=== PATIENT | male | born 1935 | race Caucasian/White ===

== ENCOUNTER 2016-07-02 13:07 | Outpatient (CLI) | payer MEDICARE, BC | END 2016-07-02 13:08 | disposition home or self-care (01) | DX: R91.8 Other nonspecific abnormal finding of lung field (principal) ==

== ENCOUNTER 2016-07-02 13:11 | Outpatient (CLI) | payer MEDICARE, BC | END 2016-07-02 13:12 | disposition home or self-care (01) | DX: R06.02 Shortness of breath (principal); R91.8 Other nonspecific abnormal finding of lung field; I51.7 Cardiomegaly ==

== ENCOUNTER 2017-12-09 11:23 | Emergency (ER) | payer MEDICARE, BC ==
--- NOTE | 2017-12-09 12:43 | ED Physician Documentation ---
PD HPI UPPER EXT INJURY - Stated complaint Stated Complaint: L ELBOW LAC - Chief complaint Chief Complaint: Ext Problem - History obtained from History obtained from: Patient - History of Present Illness Location: Left, Elbow (posterior elbow laceration. He was carrying an old toilet tank and lost balance, fell to left side and struck elbow. Denies injury to head/neck/back.) Type of injury: Fall. No: Blunt / blow, Penetrating / stab / GSW Timing - onset: Today Timing - details: Abrupt onset, Still present Worsened by: Moving, Palpating Associated symptoms: No: Weakness, Numbness, Swelling Similar symptoms before: Has not had sx before Recently seen: Not recently seen Review of Systems Musculoskeletal: denies: Neck pain, Back pain Neurologic: denies: Generalized weakness, Focal weakness, Numbness, Difficulty speaking, Headache, Head injury PD PAST MEDICAL HISTORY - Past Medical History Cardiovascular: Hypertension Respiratory: None GI: Colon polyps : Kidney stones Musculoskeletal: Osteoarthritis, Gout - Past Surgical History General: Colonoscopy Ortho: Knee replacement, Carpal Tunnel surgery - Present Medications Home Medications: Ambulatory Orders Medication Instructions Recorded Confirmed Allopurinol 100 mg PO 12/03/12 12/03/12 Aspirin 81 mg PO 12/03/12 12/03/12 Hydrochlorothiazide 50 mg PO 12/03/12 12/03/12 Losartan [Cozaar] 50 mg PO DAILY 12/03/12 12/03/12 - Allergies Allergies/Adverse Reactions: Allergies Allergy/AdvReac Type Severity Reaction Status Date / Time No Known Drug Allergies Allergy Verified 12/09/17 11:40 - Social History Does the pt smoke?: No Smoking Status: Never smoker Does the pt drink ETOH?: Yes Does the pt have substance abuse?: No - Immunizations Immunizations are current?: Yes PD ED PE NORMAL - Vitals Vital signs reviewed: Yes - General General: Alert and oriented X 3, No acute distress, Well developed/nourished - HEENT HEENT: Atraumatic, Moist mucous membranes - Neck Neck: Supple, no meningeal sign, No bony TTP, No adenopathy - Cardiac Cardiac: RRR, No murmur - Respiratory Respiratory: Clear bilaterally - Abdomen Abdomen: Soft, Non tender - Back Back: No spinal TTP - Derm Derm: Normal color, Warm and dry - Extremities Extremities: No deformity, Normal ROM s pain, Other (left posterior elbow laceration through skin but not into bursal nor joint. Edges open with elbow flexion. ) - Neuro Neuro: Alert and oriented X 3, No motor deficit, Normal speech Eye Opening: Spontaneous Motor: Obeys Commands Verbal: Oriented GCS Score: 15 - Psych Psych: Normal mood, Normal affect Results - Vitals Vitals: Oxygen O2 Source Room air Procedures - Laceration (location) left posterior elbow Length in cm: 3 Wound type: Curved Neurovascular status: Sensory intact, Motor intact, Vascular intact Tendon involvement: No: Tendon Injury Anesthesia: Lidocaine 1% with epi, Marcaine 0.5% with epi Wound Preparation: Irrigated copiously NS Skin layer closure: Nylon, Running, Size #-0 - enter number (4), Sutures - enter # (14) Other: Patient tolerated well, No complications, Neurovascular intact, Dressing applied, Tetanus UTD Complexity: Simple PD MEDICAL DECISION MAKING - ED course Complexity details: considered differential, d/w patient - Sepsis Event Vital Signs: Oxygen O2 Source Room air Departure - Departure Disposition: 01 Home, Self Care Clinical Impression: Fall from slip, trip, or stumble Qualifiers: Encounter type: initial encounter Qualified Code(s): W01.0XXA - Fall on same level from slipping, tripping and stumbling without subsequent striking against object, initial encounter Elbow laceration Qualifiers: Encounter type: initial encounter Laterality: left Qualified Code(s): S51.012A - Laceration without foreign body of left elbow, initial encounter Condition: Stable Record reviewed to determine appropriate education?: Yes Instructions: ED Laceration Ext Sutr Stap Tape Follow-Up: Kamron Fabian DO [Primary Care Provider] - Comments: It is okay to wash and shower. Clean off the wound twice a day with soap and water, or peroxide and water. Apply some antibiotic ointment to it to keep it moist. Also to watch for signs of infection such as purulence, redness or increasing pain. Return to your primary care or the ER at the specified time for suture removal. Suture removal 12-14 days. Tylenol or ibuprofen if needed for pains. Regular use of the arm is okay. Discharge Date/Time: 12/09/17 13:39
[2017-12-09] MEDS ORDERED: BACITRACIN OINT TOP ONE (13:24)
[2017-12-09 13:39] VITALS: BP 176/94
== END 2017-12-09 13:39 | disposition home or self-care (01) ==
LOC: ED 11:23
DX: S51.012A Laceration without foreign body of left elbow, initial encounter (principal); W18.30XA Fall on same level, unspecified, initial encounter; W22.8XXA Striking against or struck by other objects, initial encounter; I10 Essential (primary) hypertension; Z96.659 Presence of unspecified artificial knee joint; Z79.82 Long term (current) use of aspirin
CPT/HCPCS: 12002; 99282; 99283; A9270

== ENCOUNTER 2018-01-13 17:13 | Outpatient (CLI) | payer MEDICARE, BC | END 2018-01-13 17:14 | disposition critical access hospital (66) | LOC: EMS 17:13 | PROVIDERS: ATTEND Surgery | DX: R10.9 Unspecified abdominal pain (principal); R61 Generalized hyperhidrosis; R23.1 Pallor | CPT/HCPCS: A0425; A0427 ==

== ENCOUNTER 2018-01-13 17:43 | Inpatient (IN) | payer MEDICARE, BC ==
[2018-01-13] MEDS ORDERED: MORPHINE 2 MG/ML CARPUJECT IVP STA (17:56)
[2018-01-13] MEDS ORDERED: ONDANSETRON 4 MG/2 ML VIAL IVP STA (17:56)
--- NOTE | 2018-01-13 17:58 | ED Physician Documentation ---
History of Present Illness - Stated complaint Stated Complaint: BACK PX - Chief complaint Chief Complaint: General - History obtained from History obtained from: Patient - History of Present Illness Timing: Today (82-year-old gentleman with history of hypertension, BPH who commonly has low back pain had a higher back pain near the shoulder blades today and was sitting in his chair doing some light exercises to try to work it out when he developed excruciating diffuse abdominal pain that lasted for about 30 minutes and is now gone. There is no associated shortness of breath or chest pain. He is never had this before. No history of abdominal surgeries.) Review of Systems Ten Systems: 10 systems reviewed and negative Constitutional: denies: Fever, Chills Cardiac: denies: Chest pain / pressure, Palpitations Respiratory: denies: Dyspnea, Cough PD PAST MEDICAL HISTORY - Past Medical History Cardiovascular: Hypertension Respiratory: None GI: Colon polyps : Kidney stones Musculoskeletal: Osteoarthritis, Gout - Past Surgical History General: Colonoscopy Ortho: Knee replacement, Carpal Tunnel surgery - Present Medications Home Medications: Ambulatory Orders Medication Instructions Recorded Confirmed Allopurinol 100 mg PO 12/03/12 12/03/12 Aspirin 81 mg PO 12/03/12 12/03/12 Hydrochlorothiazide 50 mg PO 12/03/12 12/03/12 Losartan [Cozaar] 100 mg PO DAILY 12/03/12 12/03/12 Finasteride 5 mg PO 01/13/18 Tamsulosin HCl [Flomax] 0.4 mg 01/13/18 - Allergies Allergies/Adverse Reactions: Allergies Allergy/AdvReac Type Severity Reaction Status Date / Time No Known Drug Allergies Allergy Verified 01/13/18 18:08 - Social History Does the pt smoke?: No Smoking Status: Never smoker Does the pt drink ETOH?: Yes Does the pt have substance abuse?: No - Immunizations Immunizations are current?: Yes PD ED PE NORMAL - Vitals Vital signs reviewed: Yes - General General: Alert and oriented X 3 (He is sweaty) - HEENT HEENT: PERRL, EOMI - Neck Neck: Supple, no meningeal sign, No bony TTP - Cardiac Cardiac: RRR, No murmur - Respiratory Respiratory: No respiratory distress, Clear bilaterally - Abdomen Abdomen: Soft (Large ventral hernia), Other (Mild diffuse tenderness without surgical signs) - Derm Derm: Normal color, Other (sweaty) - Extremities Extremities: No deformity, No tenderness to palpate, No edema, No calf tenderness / cord - Neuro Neuro: Alert and oriented X 3, Normal speech - Psych Psych: Normal mood, Normal affect Results - Vitals Vitals: Vital Signs - 24 hr 01/13/18 01/13/18 01/13/18 17:44 18:00 18:11 Temperature 35.5 C L Heart Rate 83 80 Respiratory 18 16 Rate Blood Pressure 123/51 L 113/70 123/56 L O2 Saturation 95 94 01/13/18 20:27 Temperature Heart Rate 86 Respiratory 17 Rate Blood Pressure 156/94 H O2 Saturation 99 Oxygen O2 Source Room air - EKG (time done) 1753 Rate: Rate (enter#) (77) Rhythm: NSR [place]: Normal Intervals: Prolonged CT Ischemia: Q waves (inferior/ small lat). No: ST elevation c/w ischemia Computer interpretation: Agree with computer - Labs Labs: Laboratory Tests 01/13/18 01/13/18 01/13/18 18:00 18:00 18:00 WBC 10.1 RBC 4.77 Hgb 14.8 Hct 43.9 MCV 91.9 MCH 31.0 MCHC 33.7 RDW 14.5 Plt Count 296 MPV 7.0 L Neut # (Auto) 7.9 H Lymph # (Auto) 1.[address] [place] # (Auto) 0.7 Eos # (Auto) 0.1 Baso # (Auto) 0.1 Absolute Nucleated RBC 0.00 Nucleated RBC % 0.0 PT 11.9 INR 1.1 Sodium 132 L Potassium 3.4 L Chloride 92 L Carbon Dioxide 30 Anion Gap 10.0 BUN 15 Creatinine 1.0 Estimated GFR (MDRD) 71 L Glucose 147 H Calcium 9.9 Total Bilirubin 1.4 H AST 88 H ALT 37 Alkaline Phosphatase 119 Troponin I Total Protein 6.2 L Albumin 3.8 Globulin 2.4 Albumin/Globulin Ratio 1.6 Lipase 1595 H Blood Type Antibody Screen 01/13/18 01/13/18 18:00 18:00 WBC RBC Hgb Hct MCV MCH MCHC RDW Plt Count MPV Neut # (Auto) Lymph # (Auto) [place] # (Auto) Eos # (Auto) Baso # (Auto) Absolute Nucleated RBC Nucleated RBC % PT INR Sodium Potassium Chloride Carbon Dioxide Anion Gap BUN Creatinine Estimated GFR (MDRD) Glucose Calcium Total Bilirubin AST ALT Alkaline Phosphatase Troponin I < 0.04 Total Protein Albumin Globulin Albumin/Globulin Ratio Lipase Blood Type O POSITIVE Antibody Screen NEGATIVE - Rads (name of study) CTA Chest/abd Radiology: EMP read contemporaneously (Atherosclerosis but without vascular emergency, cholelithiasis and enlarged prostate gland.) Abd Sono Radiology: EMP read contemporaneously (Echogenic material within the gallbladder without evidence of Cholecystitis or bile duct dilatation.) PD MEDICAL DECISION MAKING - ED course ED course: 82-year-old gentleman with acute chest and back pain looking ill. Initial thought was for dissection and sent for CT which showed no acute vascular issue but does have cholelithiasis. After seeing the labs I suspect he has gallstone pancreatitis and an ultrasound was done showing material within the gallbladder but no evidence of cholecystitis or bile duct dilatation. He was pain-free at that point and the on-call surgeon, Dr. Myers was called and will consult and I spoke with Dr. Antonio for admission at 9 PM. Departure - Departure Disposition: 66 [facility] DC/Xfer Clinical Impression: Pancreatitis Qualifiers: Chronicity: acute Pancreatitis type: unspecified pancreatitis type Acute pancreatitis complication: no infection or necrosis Qualified Code(s): K85.90 - Acute pancreatitis without necrosis or infection, unspecified Condition: Serious Record reviewed to determine appropriate education?: Yes
[2018-01-13 18:15] LABS: BASOPHILS # (AUTO) 0.1 10^3/uL (0.0-0.1); BASOPHILS % (AUTO) 0.7 %; EOSINOPHILS # (AUTO) 0.1 10^3/uL (0.0-0.7); HGB - HEMOGLOBIN 14.8 g/dL (14.0-18.0); LYMPHOCYTES # (AUTO) 1.4 10^3/uL (1.5-3.5); LYMPHOCYTES % (AUTO) 13.8 %; MEAN CORPUSCULAR HGB CONC 33.7 g/dL (32.0-36.0); MEAN CORPUSCULAR VOLUME 91.9 fL (80.0-94.0); MONOCYTES # (AUTO) 0.7 10^3/uL (0.0-1.0); MONOCYTES % (AUTO) 6.6 %; NEUTROPHILS # (AUTO) 7.9 10^3/uL (1.5-6.6); NEUTROPHILS % (AUTO) 77.9 %; PLT - PLATELET COUNT 296 10^3/uL (130-450); RED BLOOD COUNT 4.77 10^6/uL (4.70-6.10); RED CELL DISTRIBUTION WIDTH 14.5 % (12.0-15.0); WHITE BLOOD COUNT 10.1 x10^3/uL (4.8-10.8)
[2018-01-13] MEDS ORDERED: IOPAMIDOL-300 100 ML VIAL ONE (18:18)
[2018-01-13 18:19] LABS: INR 1.1 (0.8-1.2); PT - PROTHROMBIN TIME 11.9 secs (9.9-12.6)
[2018-01-13 18:46] LABS: ALBUMIN 3.8 g/dL (3.2-5.5); ALBUMIN/GLOBULIN RATIO 1.6 (1.0-2.2); BILIRUBIN,TOTAL 1.4 mg/dL (0.2-1.0); CALCIUM 9.9 mg/dL (8.5-10.3); TOTAL PROTEIN 6.2 g/dL (6.7-8.2)
[2018-01-13] MEDS ORDERED: IOPAMIDOL-300 100 ML VIAL IVP ONE (19:04)
--- NOTE | 2018-01-13 19:50 | CT Report ---
Reason: BACK/ABD PAIN Procedure Date: 01/13/2018 Accession Number: [id number] / [id number] Procedure: CT - Abdomen/Pelvis Angio CPT Code: FULL RESULT: IMPRESSION: 1. No aortic dissection. No central pulmonary emboli. Moderate to severe atherosclerosis. 2. Cholelithiasis. 3. Enlarged prostate gland. RADIA
--- NOTE | 2018-01-13 19:50 | CT Report ---
Reason: back/abd pain Procedure Date: 01/13/2018 Accession Number: [id number] / [id number] Procedure: CT - Chest Angio (AORTA) CPT Code: FULL RESULT: EXAM: CT ANGIOGRAM CHEST, ABDOMEN AND PELVIS EXAM DATE: 01/13/2018 07:07 PM. CLINICAL HISTORY: Back/abd pain. COMPARISONS: 07/02/2016, 08/14/2012. TECHNIQUE: Routine axial helical CT angiographic imaging was performed through the chest, abdomen, and pelvis. IV Contrast: ISOVUE 300 100mL. Reconstructions: Coronal, sagittal, and 3D MIP reconstructions of the aorta. In accordance with CT protocol optimization, one or more of the following dose reduction techniques were utilized for this exam: automated exposure control, adjustment of mA and/or KV based on patient size, or use of iterative reconstructive technique. FINDINGS: The examination is mildly degraded by motion artifact. Vascular Structures: No aortic dissection. The ascending aorta measures up to 4.1 cm at the level of the right pulmonary artery. Moderate atherosclerotic of the arch and descending aorta. Moderate to marked atherosclerosis of the abdominal aorta and its branches. No abdominal aortic aneurysm. No major vessel occlusion. 3 vessel coronary calcifications. No pulmonary emboli are identified through the proximal segmental level. Lungs/Pleura: No consolidation, or pleural effusion or pneumothorax. Mild peripheral reticulation. Mild dependent atelectasis or scar. No mass. Mediastinum: No cardiac enlargement or lymphadenopathy. Abdominal Organs: There are a few sub-centimeter hypoattenuating lesions in the liver and a few calcified granulomas in the liver and spleen. There is fatty atrophy of the pancreas. There are exophytic right renal cysts. No hydronephrosis. There is cholelithiasis. No gallbladder wall thickening. Peritoneal Cavity: No bowel obstruction. Small hiatal hernia. No free fluid, free air, or acute inflammatory process. Pelvic Organs: Mild urinary bladder wall thickening. Enlarged prostate gland measures 5.2 x 5.3 cm. Bones: Moderate to severe changes in the spine with prominent osteophyte formation, greatest in the lumbar spine. Mild lumbar scoliosis. There are several old rib fractures. Other: None. IMPRESSION: 1. No aortic dissection. No central pulmonary emboli. Moderate to severe atherosclerosis. 2. Cholelithiasis. 3. Enlarged prostate gland. RADIA
--- NOTE | 2018-01-13 20:49 | Ultrasound Report ---
Reason: abd/back pain, high lipase Procedure Date: 01/13/2018 Accession Number: [id number] / [id number] Procedure: US - Abdomen Limited CPT Code: FULL RESULT: EXAM: ABDOMEN ULTRASOUND LIMITED, RUQ EXAM DATE: 01/13/2018 07:45 PM. CLINICAL HISTORY: Abd/back pain, high lipase. COMPARISON: ABDOMEN/PELVIS ANGIO 01/13/2018 6:58 PM. TECHNIQUE: Real-time scanning was performed with static images obtained. FINDINGS: Liver: Submitted images of liver demonstrate no focal lesions. Main portal vein flow: Hepatopetal. Gallbladder: There is echogenic material within the gallbladder which probably represents sludge. There is no evidence of gallbladder wall thickening. Negative sonographic Jones sign. Biliary System: CBD measures 6 mm. No intrahepatic or extrahepatic ductal dilatation. Other: Right kidney demonstrates no hydronephrosis. IMPRESSION: 1. There is echogenic material within the gallbladder which probably represents sludge. No evidence of shadowing stones or wall thickening. Negative sonographic Jones sign. 2. There is no intra-or extrahepatic bile duct dilatation. RADIA
[2018-01-13] MEDS ORDERED: PROCHLORPERAZINE 10 MG/2 ML VIAL IVP PRN (21:04)
[2018-01-13] MEDS ORDERED: PROMETHAZINE 25 MG/1 ML VIAL IM PRN (21:04)
[2018-01-13] MEDS ORDERED: oxyCODONE 5 MG TABLET PO PRN (21:04)
[2018-01-13] MEDS ORDERED: ONDANSETRON 4 MG/2 ML VIAL IVP PRN (21:04)
--- NOTE | 2018-01-13 21:14 | HISTORY & PHYSICAL EXAMINATION ---
Chief Complaint - Chief Complaint Chief Complaint: Abdominal Pain History of Present Illness - Admitted From Admitted From:: Emergency Department - History Obtained From Records Reviewed: Yes History obtained from: Patient Exam Limitations: None - History of Present Illness HPI Comment/Other: Patient is an 82-year-old gentleman with a past medical history significant for hypertension, BPH, gout and osteoarthritis who presented to the emergency department with a chief complaint of abdominal pain. Patient states that he was in his normal state of health until around 4:30 PM when he began having severe abdominal pain located in the epigastric region radiating to the back. Patient states that he broke out in a cold sweat and states that his pain was a 10 out of 10 and sharp. He states that he had associated nausea and the pain remained constant until he received pain medication in the emergency department. He st ates that he had a similar pain in 1988 when he had a kidney stone but states that the location of that pain was different. He states that his last meal was at lunch time and that the pain was not related to any recent p.o. intake. He states when the pain started he was sitting on a chair watching TV and talking to his son. He states that his pain was so severe that his son called 911. The patient does admit to drinking 2 drinks a day one with dinner and 1 before bed both drinks of whiskey. The patient otherwise denies any fevers or chills. He denies any vomiting or diarrhea. He denies any chest pain, shortness of air, orthopnea, PND, increased lower extremity swelling. He denies any urinary urgency frequency or dysuria. He denies any neck stiffness or focal neurologic deficits. Patient denies any headaches, blurred vision, runny nose, sore throat, nasal congestion, difficulty swallowing, joint swelling, joint pain, muscle aches, recent unintentional weight loss, changes in his appetite, polyuria, polydipsia, skin changes, skin rash, night sweats. On presentation to the emergency department the patient was afebrile and vital signs were within normal limits. The patient received 1 dose of Zofran and 1 dose of morphine in the emergency department with which his pain and nausea resolved. The patient underwent routine lab work which did show a mild hyponatremia and hypokalemia along with a mildly elevated glucose. The patient was also found to have a mildly elevated bilirubin of 1.4 and AST of 88. The patient's lipase was significantly elevated at 1595. The patient's UA was negative. The patient did undergo imaging with an CT angiogram of the abdomen and pelvis which showed no aortic dissection. No central pulmonary emboli. Moderate to severe atherosclerosis. Cholelithiasis. And an enlarged prostate gland. The patient also underwent an abdominal ultrasound which revealed echogenic material within the gallbladder which probably represents sludge. T here was no evidence of shadowing stones or wall thickening. The sonographic Jones sign was negative. There was no intra-or extrahepatic bile duct dilatation. The emergency room physician did speak with the surgeon pedodontist as the patient was thought to likely have gallstone pancreatitis. The surgeon asked that the hospitalist team admit the patient and that they would see him in consultation. The patient was admitted to the medical pena for acute pancreatitis. History - Past Medical History Cardiovascular: reports: Hypertension Respiratory: reports: None GI: reports: Colon polyps : reports: Benign prostate hypertrophy, Kidney stones Musculoskeletal: reports: Osteoarthritis, Gout MRSA Hx?: No - Past Surgical History General: reports: Colonoscopy Ortho: reports: Knee replacement, Carpal Tunnel surgery - Family & Social History Family History: Mother: , Cancer, Father: , CAD Living arrangement: At home Living Situation: Alone Social History Notes: The patient states he grew up in [place] but lived most of his life in the [facility] before moving to [place] 21 years ago. He states that him and his moved to [place] as there son was living there after he retired from the [employer] and they love the area. He states that his in 2011 and he has been living alone since. His son does live nearby in [place]. The patient is very independent and still is able to per form all his activities of daily living. He states that he does use a walker when he goes shopping but otherwise is able to ambulate around the house without much difficulties. The patient states that he was a former smoker and smoked 1- 2 packs/day for just over 20 years and quit in 1977. He states that he does drink 2 glasses of whiskey every night. He denies any illicit drug use. - POLST Patient has POLST: No POLST Status: Full Code Meds/Allgy - Home Medications Home Medications: Ambulatory Orders Medication Instructions Recorded Confirmed Allopurinol 100 mg PO 12/03/12 12/03/12 Aspirin 81 mg PO 12/03/12 12/03/12 Hydrochlorothiazide 50 mg PO 12/03/12 12/03/12 Losartan [Cozaar] 100 mg PO DAILY 12/03/12 12/03/12 Finasteride 5 mg PO 01/13/18 Tamsulosin HCl [Flomax] 0.4 mg 01/13/18 - Allergies Allergies/Adverse Reactions: Allergies Allergy/AdvReac Type Severity Reaction Status Date / Time No Known Drug Allergies Allergy Verified 01/13/18 18:08 Review of Systems - Other Findings Other Findings: A comprehensive review of systems was performed the pertinent positives and negatives are stated above in the HPI and the remainder of the review of systems is negative. Prior Level of Functionality: Patient is still fully independent and does use a walker when he goes shopping but otherwise does not require an assistance device to ambulate around the house. He is still able to perform all his activities of daily living independently. Exam - Vital Signs Reviewed Vital Signs: Yes Vital Signs: Vital Signs x48h Temp Pulse Resp BP Pulse Ox 01/13/18 21:06 88 21 180/95 H 97 01/13/18 20:27 86 17 156/94 H 99 01/13/18 18:11 80 16 123/56 L 94 01/13/18 18:00 113/70 01/13/18 17:44 35.5 C L 83 18 123/51 L 95 - Physical Exam General Appearance: positive: No acute distress, Alert Eyes Bilateral: positive: Normal inspection, PERRL, EOMI, No lid inflammation, Conjunctivae nml, No scleral icterus ENT: positive: ENT inspection nml, Pharynx nml, Dry mucous membranes. negative: Purulent nasal drainage, Pharyngeal erythema, Oral lesions Neck: positive: Nml inspection, Thyroid nml, No JVD, Trachea midline. negative: Thyromegaly, Lymphadenopathy (R), Lymphadenopathy (L), Stiff neck, Carotid bruit, Tracheal deviation Respiratory: positive: Chest non-tender, No respiratory distress, Breath sounds nml. negative: Wheezes, Rales, Rhonchi Cardiovascular: positive: Regular rate & rhythm, No murmur, No gallop Peripheral Pulses: positive: 2+ Abdomen: positive: No organomegaly, Nml bowel sounds, No distention, Tenderness (Mild epigastric tenderness, soft abdomen with no peritoneal signs.). negative: Guarding, Rebound, Hepatomegaly Back: positive: Nml inspection. negative: CVA tenderness (R), CVA tenderness (L) Skin: positive: Color nml, No rash, Warm, Dry. negative: Cyanosis, Diaphoresis, Pallor, Skin rash Extremities: positive: Non-tender, Full ROM, Nml appearance, No pedal edema Neurologic/Psychiatric: positive: Oriented x3, CN's nml (2-12), Motor nml, Sensation nml, Mood/affect nml Conclusion/Plan - Problem List (1) Acute pancreatitis Conclusion/Plan: The patient presented with sudden onset abdominal pain with radiation to the back. On presentation the patient was found to have a lipase of 1595. Patient's CT and abdominal ultrasound showed gallbladder stones and sludge. The patient did not have a dilated common bile duct and LFTs were only mildly elevated. The patient does admit to drinking 2 glasses of whiskey nightly but has not had any change in his alcohol intake. The patient likely has gallstone pancreatitis. Plan: Bowel rest n.p.o. IV fluids IV morphine for pain control IV Zofran and Compazine for nausea control Supportive care Surgery consult for possible cholecystectomy inpatient versus outpatient Monitor lipase and amylase daily Check lipid profile Qualifiers: Pancreatitis type: biliary Acute pancreatitis complication: no infection or necrosis Qualified Code(s): K85.10 - Biliary acute pancreatitis without necrosis or infection (2) Cholelithiasis Conclusion/Plan: Patient presented with acute pancreatitis and appears to have gallstones on CT and and sludge on ultrasound. Patient did not have common bile duct dilatation. It appears that the most likely etiology of the patient's pancreatitis is gallstones. Given that this is a likely gallstone pancreatitis once patient's pancreatitis improves patient will likely need a cholecystectomy. We will c onsult surgery and keep the patient n.p.o. Qualifiers: Cholelithiasis location: gallbladder Cholecystitis presence: without cholecystitis Biliary obstruction: without biliary obstruction Qualified Code(s): K80.20 - Calculus of gallbladder without cholecystitis without obstruction (3) Hyponatremia Conclusion/Plan: Patient presents with a mild hyponatremia with a sodium of 132. Patient appears to have hypovolemic hyponatremia likely secondary to dehydration and nausea due to ongoing pancreatitis. Plan: IV fluids Monitor sodium (4) Hypokalemia Conclusion/Plan: The patient has a mild hypokalemia on presentation with a potassium of 3.4. Likely patient has hypokalemia secondary to ongoing pancreatitis and nausea. Patient will be given potassium replacement and potassium will be monitored. (5) Hypertension Conclusion/Plan: The patient is a history of hypertension and uses hydrochlorothiazide and losartan at home. Patient is currently n.p.o. and we will hold his antihypertensives for now as his blood pressure is within normal limits. If the patient's blood pressure does become significantly elevated we will place him on IV antihypertensives until he is able to start a diet at which point we can restart his home antihypertensives. Qualifiers: Hypertension type: essential hypertension Qualified Code(s): I10 - Essential (primary) hypertension (6) BPH (benign prostatic hyperplasia) Conclusion/Plan: Patient has a history of BPH and takes Flomax and finasteride at home. These medications will be continued once the patient is able to start a diet. - Lab Results Lab results reviewed: Yes Fish Bones: 01/13/18 18:00 01/13/18 18:00 Other Lab Results: Laboratory Results WBC 10.1 x10^3/uL (4.8-10.8) 01/13/18 18:00 RBC 4.77 10^6/uL (4.70-6.10) 01/13/18 18:00 Hgb 14.8 g/dL (14.0-18.0) 01/13/18 18:00 Hct 43.9 % (42.0-52.0) 01/13/18 18:00 MCV 91.9 fL (80.0-94.0) 01/13/18 18:00 MCH 31.0 pg (27.0-31.0) 01/13/18 18:00 MCHC 33.7 g/dL (32.0-36.0) 01/13/18 18:00 RDW 14.5 % (12.0-15.0) 01/13/18 18:00 Plt Count 296 10^3/uL (130-450) 01/13/18 18:00 MPV 7.0 fL (7.4-11.4) L 01/13/18 18:00 Neut # (Auto) 7.9 10^3/uL (1.5-6.6) H 01/13/18 18:00 Lymph # (Auto) 1.4 10^3/uL (1.5-3.5) L 01/13/18 18:00 [place] # (Auto) 0.7 10^3/uL (0.0-1.0) 01/13/18 18:00 Eos # (Auto) 0.1 10^3/uL (0.0-0.7) 01/13/18 18:00 Baso # (Auto) 0.1 10^3/uL (0.0-0.1) 01/13/18 18:00 Absolute Nucleated RBC 0.00 x10^3/uL 01/13/18 18:00 Nucleated RBC % 0.0 /100WBC 01/13/18 18:00 PT 11.9 secs (9.9-12.6) 01/13/18 18:00 INR 1.1 (0.8-1.2) 01/13/18 18:00 Sodium 132 mmol/L (135-145) L 01/13/18 18:00 Potassium 3.4 mmol/L (3.5-5.0) L 01/13/18 18:00 Chloride 92 mmol/L (101-111) L 01/13/18 18:00 Carbon Dioxide 30 mmol/L (21-32) 01/13/18 18:00 Anion Gap 10.0 (6-13) 01/13/18 18:00 BUN 15 mg/dL (6-20) 01/13/18 18:00 Creatinine 1.0 mg/dL (0.6-1.2) 01/13/18 18:00 Estimated GFR (MDRD) 71 (>89) L 01/13/18 18:00 Glucose 147 mg/dL (70-100) H 01/13/18 18:00 Calcium 9.9 mg/dL (8.5-10.3) 01/13/18 18:00 Total Bilirubin 1.4 mg/dL (0.2-1.0) H 01/13/18 18:00 AST 88 IU/L (10-42) H 01/13/18 18:00 ALT 37 IU/L (10-60) 01/13/18 18:00 Alkaline Phosphatase 119 IU/L (42-121) 01/13/18 18:00 Troponin I < 0.04 ng/mL (<0.49) 01/13/18 18:00 Total Protein 6.2 g/dL (6.7-8.2) L 01/13/18 18:00 Albumin 3.8 g/dL (3.2-5.5) 01/13/18 18:00 Globulin 2.4 g/dL (2.1-4.2) 01/13/18 18:00 Albumin/Globulin Ratio 1.6 (1.0-2.2) 01/13/18 18: Lipase 1595 U/L (22-51) H 01/13/18 18:00 Blood Type O POSITIVE 01/13/18 18:00 Antibody Screen NEGATIVE 01/13/18 18:00 - Diagnostic Imaging Results Diagnostic Imaging Results: positive: Final report reviewed Diagnostic Imaging Results Comments: Abdominal ultrasound Impression: 1. There is echogenic material within the gallbladder which probably represents sludge. No evidence of shadowing stones or wall thickening. Negative sonographic Jones sign. 2. There is no intra-or extrahepatic bile duct dilatation Abdomen/pelvis CT angiogram Impression: 1. No aortic dissection. No central pulmonary emboli. Moderate to severe atherosclerosis. 2. Cholelithiasis 3. Enlarged prostate gland. Core Measures - Anticipated LOS I expect patient to be DC'd or transferred within 96 hours.: Yes - DVT/VTE - Prophylaxis VTE/DVT Prophylaxis med ordered at admit?: Yes
[2018-01-13] MEDS: DEXTROSE 5%-0.9% NACL 1,000 ML IV SCH (22:00)
[2018-01-14] MEDS: SODIUM CHLORIDE FLUSH 0.9% 10 ML SYRINGE IVP SCH ×4 (00:31→23:52)
[2018-01-14 00:32] LABS: BILIRUBIN,URINE NEGATIVE (NEGATIVE); CLARITY,URINE CLEAR (CLEAR); GLUCOSE, URINE (UA) NEGATIVE (NEGATIVE); KETONES,URINE (UA) NEGATIVE (NEGATIVE); LEUKOCYTE ESTERASE, URINE NEGATIVE (NEGATIVE); NITRITE,URINE NEGATIVE (NEGATIVE); OCCULT BLOOD,URINE NEGATIVE (NEGATIVE); PROTEIN,URINE NEGATIVE (NEGATIVE); UROBILINOGEN,URINE 0.2 (NORMAL) E.U./dL (NORMAL)
[2018-01-14] MEDS: POTASSIUM CHLOR 10 MEQ/100 ML 10 MEQ/100 ML BAG IV SCH ×2 (03:36→04:48)
[2018-01-14] MEDS: SODIUM CHLORIDE FLUSH 0.9% 10 ML SYRINGE IVP PRN (03:43)
[2018-01-14 05:19] LABS: BASOPHILS % (AUTO) 0.4 %; EOSINOPHILS # (AUTO) 0.1 10^3/uL (0.0-0.7); EOSINOPHILS % (AUTO) 0.6 %; HGB - HEMOGLOBIN 14.5 g/dL (14.0-18.0); LYMPHOCYTES # (AUTO) 0.7 10^3/uL (1.5-3.5); LYMPHOCYTES % (AUTO) 8.8 %; MEAN CORPUSCULAR HEMOGLOBIN 31.3 pg (27.0-31.0); MEAN CORPUSCULAR HGB CONC 34.3 g/dL (32.0-36.0); MEAN CORPUSCULAR VOLUME 91.3 fL (80.0-94.0); MONOCYTES # (AUTO) 0.6 10^3/uL (0.0-1.0); MONOCYTES % (AUTO) 7.2 %; PLT - PLATELET COUNT 229 10^3/uL (130-450); RED BLOOD COUNT 4.62 10^6/uL (4.70-6.10); RED CELL DISTRIBUTION WIDTH 14.6 % (12.0-15.0); WHITE BLOOD COUNT 8.4 x10^3/uL (4.8-10.8)
[2018-01-14 05:22] LABS: PT - PROTHROMBIN TIME 11.5 secs (9.9-12.6)
[2018-01-14 05:35] LABS: ALBUMIN 3.5 g/dL (3.2-5.5); ALBUMIN/GLOBULIN RATIO 1.3 (1.0-2.2); ALKALINE PHOSPHATASE 184 IU/L (42-121); ALT ALANINE AMINOTRANSFERASE 169 IU/L (10-60); AMYLASE 190 U/L (28-100); AST ASPARTATE AMINOTRANSFERASE 253 IU/L (10-42); BILIRUBIN,TOTAL 1.3 mg/dL (0.2-1.0); BUN - BLOOD UREA NITROGEN 15 mg/dL (6-20); CALCIUM 8.9 mg/dL (8.5-10.3); CARBON DIOXIDE - CO2 28 mmol/L (21-32); CHLORIDE 93 mmol/L (101-111); CHOL/HDL RATIO 2.2 (<5.0); CHOLESTEROL 154 mg/dL; CREATININE 0.8 mg/dL (0.6-1.2); GFR - MDRD 92 (>89); GLUCOSE 114 mg/dL (70-100); HDL CHOLESTEROL 70 mg/dL; LDL CHOLESTEROL,CALCULATED 68 mg/dL; LIPASE 178 U/L (22-51); MAGNESIUM 1.1 mg/dL (1.7-2.8); PHOSPHORUS 3.5 mg/dL (2.5-4.6); SODIUM 132 mmol/L (135-145); TOTAL PROTEIN 6.1 g/dL (6.7-8.2); VLDL CHOLESTEROL 16 mg/dL
[2018-01-14] MEDS ORDERED: MAGNESIUM SULFATE 2 GRAM 2 GM/50 ML BAG IV ONE (06:56)
[2018-01-14] MEDS: DEXTROSE 5%-0.9% NACL 1,000 ML IV SCH ×2 (09:41→22:18)
[2018-01-14] MEDS: POLYETHYLENE GLYCOL 3350 17 GM PACKET PO SCH (09:42)
[2018-01-14] MEDS: FAMOTIDINE 20 MG/50 ML 50 ML IV SCH ×2 (09:42→20:17)
[2018-01-14] MEDS: ASPIRIN CHEW 81 MG TABLET PO SCH (09:42)
[2018-01-14] MEDS: ENOXAPARIN 40 MG/0.4 ML SYRINGE SUBQ SCH (09:43)
--- NOTE | 2018-01-14 10:48 | PROVIDER PROGRESS NOTE ---
Subjective - Prog Note Date Prog Note Date: 01/14/18 Prog Note Time: 10:55 - Subjective Pt reports feeling: Improved Subjective: He says that his pain is almost completely gone. The only time he feels the epigastric discomfort is when I press on his belly. Otherwise, at rest, there is nothing there. No nausea, fever, chills. No change in the color of his stools. Current Medications - Current Medications Current Medications: Active Medications Acetaminophen (Tylenol) 650 mg PO Q4HR PRN PRN Reason: Pain 1 to 4 Aspirin ([facility] Aspirin) 81 mg PO DAILY [facility] Last Admin: 01/14/18 09:42 Dose: Not Given Enoxaparin Sodium (Lovenox) 40 mg SUBQ DAILY [facility] Last Admin: 01/14/18 09:43 Dose: Not Given Dextrose/Sodium Chloride (D5ns) 1,000 mls @ 100 mls/hr IV .Q10H [facility] Last Admin: 01/14/18 09:41 Dose: 100 mls/hr Famotidine (Pepcid 20 Mg/50 Ml) 50 mls @ 100 mls/hr IV BID [facility] Last Infusion: 01/14/18 10:22 Dose: Infused Morphine Sulfate (Morphine (Carpuject)) 2 mg IVP Q2HR PRN PRN Reason: Pain 8 to 10 Ondansetron HCl (Zofran Inj) 4 mg IVP Q6HR PRN PRN Reason: Nausea / Vomiting Last Admin: 01/14/18 03:43 Dose: 4 mg Oxycodone HCl (Roxicodone) 5 mg PO Q4HR PRN PRN Reason: Pain 5 to 7 Oxycodone HCl (Roxicodone) 10 mg PO Q4HR PRN PRN Reason: Pain 8 to 10 Polyethylene Glycol (Miralax) 17 gm PO DAILY [facility] Last Admin: 01/14/18 09:42 Dose: Not Given Prochlorperazine Edisylate (Compazine Inj) 10 mg IVP Q6HR PRN PRN Reason: Nausea / Vomiting Promethazine HCl (Phenergan Inj) 25 mg IM Q6HR PRN PRN Reason: Nausea / Vomiting Sodium Chloride (Normal Saline Flush 0.9%) 10 ml IVP PRN PRN PRN Reason: NEEDED PER PROVIDER ORDERS Last Admin: 01/14/18 03:43 Dose: 10 ml Sodium Chloride (Normal Saline Flush 0.9%) 10 ml IVP 0100,0900,1700 NANI Last Admin: 01/14/18 09:42 Dose: 10 ml Allopurinol 100 mg PO 12/03/12 Aspirin 81 mg PO 12/03/12 Hydrochlorothiazide 50 mg PO 12/03/12 Losartan [Cozaar] 100 mg PO DAILY 12/03/12 Finasteride 5 mg PO 01/13/18 Tamsulosin HCl [Flomax] 0.4 mg 01/13/18 Objective - Vital Signs/Intake & Output Reviewed Vital Signs: Yes Vital Signs: Vital Signs x48h Temp Pulse Resp BP Pulse Ox 01/14/18 07:43 36.6 C 80 16 172/86 H 96 Intake & Output: Intake & Output 01/11/18 01/12/18 01/13/18 01/14/18 23:59 23:59 23:59 23:59 Intake Total 1300 Output Total 100 475 Balance -100 825 - Objective General Appearance: positive: No acute distress, Alert, Other (Well-nourished, moderately overweight elderly gentleman) Eyes Bilateral: positive: PERRL, EOMI ENT: positive: Pharynx nml Neck: positive: No JVD. negative: Stiff neck, Carotid bruit Respiratory: positive: Chest non-tender. negative: Wheezes, Rales, Rhonchi Cardiovascular: positive: Regular rate & rhythm. negative: Systolic murmur, Gallop/S4, Friction rub Abdomen: positive: No organomegaly, Nml bowel sounds, No distention, Tenderness (Mild, epigastrium. Nonradiating. "It feels like I got bruised"). negative: Guarding, Rebound Skin: positive: Warm, Dry Extremities: positive: Non-tender, No pedal edema, Other (The top of his right bills has a long excoriation vertically along the tibia where he scraped his knee on a piece of furniture. Eschar, no cellulitis) Neurologic/Psychiatric: positive: Oriented x3, Motor nml. negative: CN's nml (2-12) (He is deaf) - Lab Results Fish Bones: 01/14/18 05:05 01/14/18 05:05 Other Labs: Lab Results x24hrs 10/01/14/18 01/14/18 Range/Units 05:05 05:05 05:05 WBC (4.8-10.8) x10^3/uL RBC (4.70-6.10) 10^6/uL Hgb (14.0-18.0) g/dL Hct (42.0-52.0) % MCV (80.0-94.0) fL MCH (27.0-31.0) pg MCHC (32.0-36.0) g/dL RDW (12.0-15.0) % Plt Count (130-450) 10^3/uL MPV (7.4-11.4) fL Neut # (Auto) (1.5-6.6) 10^3/uL Lymph # (Auto) (1.5-3.5) 10^3/uL [place] # (Auto) (0.0-1.0) 10^3/uL Eos # (Auto) (0.0-0.7) 10^3/uL Baso # (Auto) (0.0-0.1) 10^3/uL Absolute Nucleated RBC x10^3/uL Nucleated RBC % /100WBC PT 11.5 (9.9-12.6) secs INR 1.0 (0.8-1.2) Sodium 132 L (135-145) mmol/L Potassium 3.7 (3.5-5.0) mmol/L Chloride 93 L (101-111) mmol/L Carbon Dioxide 28 (21-32) mmol/L Anion Gap 11.0 (6-13) BUN 15 (6-20) mg/dL Creatinine 0.8 (0.6-1.2) mg/dL Estimated GFR (MDRD) 92 (>89) Glucose 114 H (70-100) mg/dL Lactic Acid 0.9 (0.5-2.2) mmol/L Calcium 8.9 (8.5-10.3) mg/dL Phosphorus 3.5 (2.5-4.6) mg/dL Magnesium 1.1 L (1.7-2.8) mg/dL Total Bilirubin 1.3 H (0.2-1.0) mg/dL AST 253 H (10-42) IU/L ALT 169 H (10-60) IU/L Alkaline Phosphatase 184 H (42-121) IU/L Troponin I (<0.49) ng/mL Total Protein 6.1 L (6.7-8.2) g/dL Albumin 3.5 (3.2-5.5) g/dL Globulin 2.6 (2.1-4.2) g/dL Albumin/Globulin Ratio 1.3 (1.0-2.2) Triglycerides 79 ( - 149) mg/dL Cholesterol 154 ( - 199) mg/dL LDL Cholesterol, Calc 68 ( - 129) mg/dL VLDL Cholesterol 16 mg/dL HDL Cholesterol 70 (60 - ) mg/dL LDL/HDL Ratio 1.0 (<3.6) Cholesterol/HDL Ratio 2.2 (<5.0) Amylase 190 H (28-100) U/L Lipase 178 H (22-51) U/L Urine Color Urine Clarity (CLEAR) Urine pH (5.0-7.5) PH Ur Specific [place] (1.002-1.030) Urine Protein (NEGATIVE) mg/dL Urine Glucose (UA) (NEGATIVE) mg/dL Urine Ketones (NEGATIVE) mg/dL Urine Occult Blood (NEGATIVE) Urine Nitrite (NEGATIVE) Urine Bilirubin (NEGATIVE) Urine Urobilinogen (NORMAL) E.U./dL Ur Leukocyte Esterase (NEGATIVE) Ur Microscopic Review Urine Culture Comments Blood Type Antibody Screen 01/14/18 01/13/18 01/13/18 Range/Units 05:05 18:00 18:00 WBC 8.4 (4.8-10.8) x10^3/uL RBC 4.62 L (4.70-6.10) 10^6/uL Hgb 14.5 (14.0-18.0) g/dL Hct 42.2 (42.0-52.0) % MCV 91.3 (80.0-94.0) fL MCH 31.3 H (27.0-31.0) pg MCHC 34.3 (32.0-36.0) g/dL RDW 14.6 (12.0-15.0) % Plt Count 229 (130-450) 10^3/uL MPV 7.0 L (7.4-11.4) fL Neut # (Auto) 7.0 H (1.5-6.6) 10^3/uL Lymph # (Auto) 0.7 L (1.5-3.5) 10^3/uL [place] # (Auto) 0.6 (0.0-1.0) 10^3/uL Eos # (Auto) 0.1 (0.0-0.7) 10^3/uL Baso # (Auto) 0.0 (0.0-0.1) 10^3/uL Absolute Nucleated RBC 0.00 x10^3/uL Nucleated RBC % 0.0 /100WBC PT (9.9-12.6) secs INR (0.8-1.2) Sodium (135-145) mmol/L Potassium (3.5-5.0) mmol/L Chloride (101-111) mmol/L Carbon Dioxide (21-32) mmol/L Anion Gap (6-13) BUN (6-20) mg/dL Creatinine (0.6-1.2) mg/dL Estimated GFR (MDRD) (>89) Glucose (70-100) mg/dL Lactic Acid (0.5-2.2) mmol/L Calcium (8.5-10.3) mg/dL Phosphorus (2.5-4.6) mg/dL Magnesium (1.7-2.8) mg/dL Total Bilirubin (0.2-1.0) mg/dL AST (10-42) IU/L ALT (10-60) IU/L Alkaline Phosphatase (42-121) IU/L Troponin I < 0.04 (<0.49) ng/mL Total Protein (6.7-8.2) g/dL Albumin (3.2-5.5) g/dL Globulin (2.1-4.2) g/dL Albumin/Globulin Ratio (1.0-2.2) Triglycerides ( - 149) mg/dL Cholesterol ( - 199) mg/dL LDL Cholesterol, Calc ( - 129) mg/dL VLDL Cholesterol mg/dL HDL Cholesterol (60 - ) mg/dL LDL/HDL Ratio (<3.6) Cholesterol/HDL Ratio (<5.0) Amylase (28-100) U/L Lipase (22-51) U/L Urine Color Urine Clarity (CLEAR) Urine pH (5.0-7.5) PH Ur Specific [place] (1.002-1.030) Urine Protein (NEGATIVE) mg/dL Urine Glucose (UA) (NEGATIVE) mg/dL Urine Ketones (NEGATIVE) mg/dL Urine Occult Blood (NEGATIVE) Urine Nitrite (NEGATIVE) Urine Bilirubin (NEGATIVE) Urine Urobilinogen (NORMAL) E.U./dL Ur Leukocyte Esterase (NEGATIVE) Ur Microscopic Review Urine Culture Comments Blood Type O POSITIVE Antibody Screen NEGATIVE 01/13/18 01/13/18 01/13/18 Range/Units 18:00 18:00 18:00 WBC 10.1 (4.8-10.8) x10^3/uL RBC 4.77 (4.70-6.10) 10^6/uL Hgb 14.8 (14.0-18.0) g/dL Hct 43.9 (42.0-52.0) % MCV 91.9 (80.0-94.0) fL MCH 31.0 (27.0-31.0) pg MCHC 33.7 (32.0-36.0) g/dL RDW 14.5 (12.0-15.0) % Plt Count 296 (130-450) 10^3/uL MPV 7.0 L (7.4-11.4) fL Neut # (Auto) 7.9 H (1.5-6.6) 10^3/uL Lymph # (Auto) 1.4 L (1.5-3.5) 10^3/uL [place] # (Auto) 0.7 (0.0-1.0) 10^3/uL Eos # (Auto) 0.1 (0.0-0.7) 10^3/uL Baso # (Auto) 0.1 (0.0-0.1) 10^3/uL Absolute Nucleated RBC 0.00 x10^3/uL Nucleated RBC % 0.0 /100WBC PT 11.9 (9.9-12.6) secs INR 1.1 (0.8-1.2) Sodium 132 L (135-145) mmol/L Potassium 3.4 L (3.5-5.0) mmol/L Chloride 92 L (101-111) mmol/L Carbon Dioxide 30 (21-32) mmol/L Anion Gap 10.0 (6-13) BUN 15 (6-20) mg/dL Creatinine 1.0 (0.6-1.2) mg/dL Estimated GFR (MDRD) 71 L (>89) Glucose 147 H (70-100) mg/dL Lactic Acid (0.5-2.2) mmol/L Calcium 9.9 (8.5-10.3) mg/dL Phosphorus (2.5-4.6) mg/dL Magnesium (1.7-2.8) mg/dL Total Bilirubin 1.4 H (0.2-1.0) mg/dL AST 88 H (10-42) IU/L ALT 37 (10-60) IU/L Alkaline Phosphatase 119 (42-121) IU/L Troponin I (<0.49) ng/mL Total Protein 6.2 L (6.7-8.2) g/dL Albumin 3.8 (3.2-5.5) g/dL Globulin 2.4 (2.1-4.2) g/dL Albumin/Globulin Ratio 1.6 (1.0-2.2) Triglycerides ( - 149) mg/dL Cholesterol ( - 199) mg/dL LDL Cholesterol, Calc ( - 129) mg/dL VLDL Cholesterol mg/dL HDL Cholesterol (60 - ) mg/dL LDL/HDL Ratio (<3.6) Cholesterol/HDL Ratio (<5.0) Amylase (28-100) U/L Lipase 1595 H (22-51) U/L Urine Color Urine Clarity (CLEAR) Urine pH (5.0-7.5) PH Ur Specific [place] (1.002-1.030) Urine Protein (NEGATIVE) mg/dL Urine Glucose (UA) (NEGATIVE) mg/dL Urine Ketones (NEGATIVE) mg/dL Urine Occult Blood (NEGATIVE) Urine Nitrite (NEGATIVE) Urine Bilirubin (NEGATIVE) Urine Urobilinogen (NORMAL) E.U./dL Ur Leukocyte Esterase (NEGATIVE) Ur Microscopic Review Urine Culture Comments Blood Type Antibody Screen 01/13/18 Range/Units 00:06 WBC (4.8-10.8) x10^3/uL RBC (4.70-6.10) 10^6/uL Hgb (14.0-18.0) g/dL Hct (42.0-52.0) % MCV (80.0-94.0) fL MCH (27.0-31.0) pg MCHC (32.0-36.0) g/dL RDW (12.0-15.0) % Plt Count (130-450) 10^3/uL MPV (7.4-11.4) fL Neut # (Auto) (1.5-6.6) 10^3/uL Lymph # (Auto) (1.5-3.5) 10^3/uL [place] # (Auto) (0.0-1.0) 10^3/uL Eos # (Auto) (0.0-0.7) 10^3/uL Baso # (Auto) (0.0-0.1) 10^3/uL Absolute Nucleated RBC x10^3/uL Nucleated RBC % /100WBC PT (9.9-12.6) secs INR (0.8-1.2) Sodium (135-145) mmol/L Potassium (3.5-5.0) mmol/L Chloride (101-111) mmol/L Carbon Dioxide (21-32) mmol/L Anion Gap (6-13) BUN (6-20) mg/dL Creatinine (0.6-1.2) mg/dL Estimated GFR (MDRD) (>89) Glucose (70-100) mg/dL Lactic Acid (0.5-2.2) mmol/L Calcium (8.5-10.3) mg/dL Phosphorus (2.5-4.6) mg/dL Magnesium (1.7-2.8) mg/dL Total Bilirubin (0.2-1.0) mg/dL AST (10-42) IU/L ALT (10-60) IU/L Alkaline Phosphatase (42-121) IU/L Troponin I (<0.49) ng/mL Total Protein (6.7-8.2) g/dL Albumin (3.2-5.5) g/dL Globulin (2.1-4.2) g/dL Albumin/Globulin Ratio (1.0-2.2) Triglycerides ( - 149) mg/dL Cholesterol ( - 199) mg/dL LDL Cholesterol, Calc ( - 129) mg/dL VLDL Cholesterol mg/dL HDL Cholesterol (60 - ) mg/dL LDL/HDL Ratio (<3.6) Cholesterol/HDL Ratio (<5.0) Amylase (28-100) U/L Lipase (22-51) U/L Urine Color YELLOW Urine Clarity CLEAR (CLEAR) Urine pH 7.0 (5.0-7.5) PH Ur Specific [place] 1.010 (1.002-1.030) Urine Protein NEGATIVE (NEGATIVE) mg/dL Urine Glucose (UA) NEGATIVE (NEGATIVE) mg/dL Urine Ketones NEGATIVE (NEGATIVE) mg/dL Urine Occult Blood NEGATIVE (NEGATIVE) Urine Nitrite NEGATIVE (NEGATIVE) Urine Bilirubin NEGATIVE (NEGATIVE) Urine Urobilinogen 0.2 (NORMAL) (NORMAL) E.U./dL Ur Leukocyte Esterase NEGATIVE (NEGATIVE) Ur Microscopic Review NOT INDICATED Urine Culture Comments NOT INDICATED Blood Type Antibody Screen ABX Reporting Has patient been on IV antibiotics over the past 48 hours?: No Assessment/Plan - Problem List (1) Acute pancreatitis Impression: The patient presented with sudden onset abdominal pain with radiation to the back. On presentation the patient was found to have a lipase of 1595. Patient's CT and abdominal ultrasound showed gallbladder stones and sludge. The patient did not have a dilated common bile duct and LFTs were only mildly elevated. The patient does admit to drinking 2 glasses of whiskey nightly but has not had any change in his alcohol intake. The patient likely has gallstone pancreatitis. Plan: Continue : Bowel rest n.p.o. IV fluids IV morphine for pain control IV Zofran and Compazine for nausea control Supportive care Surgery consult for possible cholecystectomy recommends cholecytecomy before the patient leaves the hospital. Will need an MRCP. If MRCP then requires ERCP, then transfer to higher level of care and patient can have cholecystectomy there as well. Monitor lipase and amylase daily. They have come down to 178 and 190 respectively today Lipid profile has triglycerides of 70. Qualifiers: Pancreatitis type: biliary Acute pancreatitis complication: no infection or necrosis Qualified Code(s): K85.10 - Biliary acute pancreatitis without necrosis or infection (2) Cholelithiasis Conclusion/Plan: Patient presented with acute pancreatitis and appears to have gallstones on CT and and sludge on ultrasound. Patient did not have common bile duct dilatation. It appears that the most likely etiology of the patient's pancreatitis is gallstones. Given that this is a likely gallstone pancreatitis once patient's pancreatitis improves patient will likely need a cholecystectomy. We will consult surgery and keep the patient n.p.o. MRCP as discussed in above problem. Qualifiers: Cholelithiasis location: gallbladder Cholecystitis presence: without cholecystitis Biliary obstruction: without biliary obstruction Qualified Code(s): K80.20 - Calculus of gallbladder without cholecystitis without obstruction (3) Hyponatremia Conclusion/Plan: Patient presents with a mild hyponatremia with a sodium of 132>132 today. Patient appears to have hypovolemic hyponatremia likely secondary to dehydration and nausea due to ongoing pancreatitis. Plan: IV fluids Monitor sodium (4) Hypokalemia Conclusion/Plan: The patient has a mild hypokalemia on presentation with a potassium of 3.4. Likely patient has hypokalemia secondary to ongoing pancreatitis and nausea. Patient will be given potassium replacement and potassium will be monitored. Today he is normal. (5) Hypertension Conclusion/Plan: The patient is a history of hypertension and uses hydrochlorothiazide and losartan at home. Patient is currently n.p.o. and we will hold his antihypertensives for now as his blood pressure is within normal limits. If the patient's blood pressure does become significantly elevated we will place him on IV antihypertensives until he is able to start a diet at which point we can restart his home antihypertensives.Blood pressure is 176-180/77-95. So far no need for meds. Qualifiers: Hypertension type: essential hypertension Qualified Code(s): I10 - Essential (primary) hypertension (6) BPH (benign prostatic hyperplasia) Conclusion/Plan: Patient has a history of BPH and takes Flomax and finasteride at home. These medications will be continued once the patient is able to start a diet.
--- NOTE | 2018-01-14 13:22 | MRI Report ---
Reason: pancreatitis Procedure Date: 01/14/2018 Accession Number: [id number] / [id number] Procedure: MRI - MRCP W/O CPT Code: FULL RESULT: EXAM: MR ABDOMEN WITHOUT CONTRAST (MR CHOLANGIOPANCREATOGRAPHY) EXAM DATE: 01/14/2018 11:54 AM. CLINICAL HISTORY: Pancreatitis. COMPARISON: ABDOMEN LIMITED 01/13/2018 7:45 PM without report. ABDOMEN/PELVIS ANGIO 01/13/2018 6:58 PM without report. TECHNIQUE: Multiplanar breath-hold T1 and T2 sequences obtained through the abdomen on an MR scanner. Dedicated 2D and 3D MRCP sequences obtained through the biliary and pancreatic ducts. No intravenous contrast given. FINDINGS: Lung Bases: The lung bases are clear. Liver: Normal in size, contour, and overall echotexture. There is a 1 cm cyst in the posterior right hepatic lobe. Biliary system: Gallbladder moderately distended. Layering gravel-like gallstones. No gallbladder wall thickening. Moderate pericholecystic fluid. No intrahepatic or extrahepatic biliary ductal dilatation with the common bile duct measuring 7 mm. No evidence of choledocholithiasis. Pancreas: Normal in size and contour. The pancreatic duct measures 1 mm in diameter and appears normal with no stone or stricture. There is minimal fluid posterior to the pancreatic head extending posterior to the second portion of the duodenum. Spleen: The spleen appears normal. Kidneys and Adrenals: The kidneys appear normal with no mass or hydronephrosis. There are 2 exophytic cysts arising from the right kidney measuring about 3 cm. The adrenals appear normal. Bowel: The small bowel and colon appear normal with no inflammation or obstruction. Retroperitoneum: The retroperitoneal structures appear normal with no mass or lymphadenopathy. IMPRESSION: 1. Multiple layering gravel-like gallstones. Moderate pericholecystic fluid suggesting acute cholecystitis. 2. No biliary ductal dilatation or choledocholithiasis. 3. Mild edema posterior to the pancreatic head consistent with history of pancreatitis. There is no pancreatic ductal dilatation. RAD[facility] The above findings were discussed with Adele Richards by Dr. Zachery Pulido at 13:21 hrs on 01/14/18.
[2018-01-14] MEDS ORDERED: TEMAZEPAM 7.5 MG CAPSULE PO PRN (16:09)
[2018-01-14] MEDS: oxyCODONE 5 MG TABLET PO PRN (20:16)
[2018-01-14] MEDS: TAMSULOSIN 0.4 MG CAPSULE PO SCH (20:17)
[2018-01-14] MEDS: FINASTERIDE 5 MG TABLET PO SCH (20:17)
[2018-01-14] MEDS: MORPHINE 2 MG/ML CARPUJECT IVP PRN (22:25)
[2018-01-14] MEDS ORDERED: MORPHINE 2 MG/ML CARPUJECT IVP STA (23:30)
[2018-01-14] MEDS ORDERED: PIPERACILLIN/TAZOBACTAM 3.375 GM in SODIUM CHLORIDE 0.9% MINIBAG 100 ML IV SCH (23:45)
[2018-01-14] MEDS: ACETAMINOPHEN 325 MG TABLET PO PRN (23:52)
[2018-01-15 00:15] LABS: BASOPHILS % (AUTO) 0.4 %; EOSINOPHILS % (AUTO) 0.3 %; HGB - HEMOGLOBIN 13.6 g/dL (14.0-18.0); LYMPHOCYTES # (AUTO) 0.3 10^3/uL (1.5-3.5); LYMPHOCYTES % (AUTO) 2.9 %; MEAN CORPUSCULAR HEMOGLOBIN 32.1 pg (27.0-31.0); MEAN CORPUSCULAR HGB CONC 35.1 g/dL (32.0-36.0); MEAN CORPUSCULAR VOLUME 91.5 fL (80.0-94.0); MEAN PLATELET VOLUME 6.9 fL (7.4-11.4); MONOCYTES # (AUTO) 0.3 10^3/uL (0.0-1.0); MONOCYTES % (AUTO) 2.7 %; NEUTROPHILS # (AUTO) 8.8 10^3/uL (1.5-6.6); NEUTROPHILS % (AUTO) 93.7 %; PLT - PLATELET COUNT 206 10^3/uL (130-450); RED BLOOD COUNT 4.23 10^6/uL (4.70-6.10); RED CELL DISTRIBUTION WIDTH 14.3 % (12.0-15.0); WHITE BLOOD COUNT 9.3 x10^3/uL (4.8-10.8)
[2018-01-15 00:29] LABS: ALBUMIN 3.2 g/dL (3.2-5.5); ALBUMIN/GLOBULIN RATIO 1.2 (1.0-2.2); ALKALINE PHOSPHATASE 144 IU/L (42-121); ALT ALANINE AMINOTRANSFERASE 105 IU/L (10-60); AMYLASE 54 U/L (28-100); AST ASPARTATE AMINOTRANSFERASE 89 IU/L (10-42); BILIRUBIN,TOTAL 1.1 mg/dL (0.2-1.0); BUN - BLOOD UREA NITROGEN 12 mg/dL (6-20); CALCIUM 8.2 mg/dL (8.5-10.3); CARBON DIOXIDE - CO2 27 mmol/L (21-32); CHLORIDE 96 mmol/L (101-111); CREATININE 0.8 mg/dL (0.6-1.2); GFR - MDRD 92 (>89); GLUCOSE 121 mg/dL (70-100); SODIUM 132 mmol/L (135-145); TOTAL PROTEIN 5.9 g/dL (6.7-8.2)
[2018-01-15] MEDS ORDERED: PIPERACILLIN/TAZOBACTAM 3.375 GM in SODIUM CHLORIDE 0.9% MINIBAG 100 ML IV SCH (00:30)
[2018-01-15 00:38] LABS: VBG PH 7.377 (7.31-7.41)
[2018-01-15] MEDS ORDERED: NS W/20 MEQ KCL 1,000 ML IV SCH (01:00)
[2018-01-15] MEDS: MORPHINE 2 MG/ML CARPUJECT IVP PRN ×4 (01:41→15:49)
[2018-01-15] MEDS: PIPERACILLIN/TAZOBACTAM 3.375 GM in SODIUM CHLORIDE 0.9% MINIBAG 100 ML IV SCH ×2 (03:37→13:06)
[2018-01-15 04:57] LABS: BASOPHILS # (AUTO) 0.2 10^3/uL (0.0-0.1); BASOPHILS % (AUTO) 1.3 %; HGB - HEMOGLOBIN 13.5 g/dL (14.0-18.0); LYMPHOCYTES # (AUTO) 0.3 10^3/uL (1.5-3.5); LYMPHOCYTES % (AUTO) 2.6 %; MEAN CORPUSCULAR HEMOGLOBIN 30.8 pg (27.0-31.0); MEAN CORPUSCULAR HGB CONC 33.2 g/dL (32.0-36.0); MEAN CORPUSCULAR VOLUME 92.9 fL (80.0-94.0); MEAN PLATELET VOLUME 7.2 fL (7.4-11.4); MONOCYTES # (AUTO) 0.9 10^3/uL (0.0-1.0); NEUTROPHILS # (AUTO) 11.9 10^3/uL (1.5-6.6); NEUTROPHILS % (AUTO) 89.1 %; PLT - PLATELET COUNT 205 10^3/uL (130-450); RED BLOOD COUNT 4.37 10^6/uL (4.70-6.10); RED CELL DISTRIBUTION WIDTH 14.7 % (12.0-15.0); WHITE BLOOD COUNT 13.3 x10^3/uL (4.8-10.8)
[2018-01-15 05:32] LABS: ALBUMIN 3.2 g/dL (3.2-5.5); ALBUMIN/GLOBULIN RATIO 1.3 (1.0-2.2); BILIRUBIN,TOTAL 1.3 mg/dL (0.2-1.0); CALCIUM 8.4 mg/dL (8.5-10.3); CREATININE 0.7 mg/dL (0.6-1.2); MAGNESIUM 1.2 mg/dL (1.7-2.8); PHOSPHORUS 3.6 mg/dL (2.5-4.6); TOTAL PROTEIN 5.7 g/dL (6.7-8.2)
[2018-01-15] MEDS: oxyCODONE 5 MG TABLET PO PRN (07:44)
[2018-01-15] MEDS: MULTIVITAMIN TABLET PO SCH (08:21)
[2018-01-15] MEDS: ENOXAPARIN 40 MG/0.4 ML SYRINGE SUBQ SCH (08:21)
[2018-01-15] MEDS: POLYETHYLENE GLYCOL 3350 17 GM PACKET PO SCH (08:22)
[2018-01-15] MEDS ORDERED: FINASTERIDE 5 MG TABLET PO SCH (09:00)
[2018-01-15] MEDS ORDERED: TAMSULOSIN 0.4 MG CAPSULE PO SCH (09:00)
[2018-01-15] MEDS: FAMOTIDINE 20 MG/50 ML 50 ML IV SCH ×2 (11:00→20:51)
[2018-01-15] MEDS: ASPIRIN CHEW 81 MG TABLET PO SCH (11:00)
[2018-01-15] MEDS: LOSARTAN 50 MG TABLET PO SCH (11:00)
[2018-01-15] MEDS: ALLOPURINOL 100 MG TABLET PO SCH (11:00)
[2018-01-15] MEDS: SODIUM CHLORIDE FLUSH 0.9% 10 ML SYRINGE IVP SCH ×2 (11:01→16:54)
[2018-01-15] MEDS: hydroCHLOROthiazide 25 MG TABLET PO SCH (11:01)
[2018-01-15] MEDS: SODIUM CHLORIDE 0.9% 1,000 ML IV SCH ×2 (11:01→23:09)
[2018-01-15] MEDS ORDERED: BUPIVACAINE 0.5% PF 30 ML VIAL ONE (14:30)
--- NOTE | 2018-01-15 14:34 | ANESTHESIA ---
Pre-Anesthesia VS, & Labs - Diagnosis Acute Cholelithiasis - Procedure Laparoscopic cholecystectomy Vital Signs: Temp Pulse Resp BP Pulse Ox 36.7 C 83 18 164/77 H 95 01/15/18 06:51 01/15/18 06:51 01/15/18 06:51 01/15/18 06:51 01/15/18 06:51 Height 5 ft 10 in Weight (kg) 90.5 kg Body Mass Index 28.6 - NPO >8 hours - Lab Results Current Lab Results: Laboratory Tests 01/15/18 04:30: Sodium 132 L, Potassium 3.5, Chloride 99 L, Carbon Dioxide 25, Anion Gap 8.0, BUN 12, Creatinine 0.7, Estimated GFR (MDRD) 107, Glucose 127 H, Calcium 8.4 L, Phosphorus 3.6, Magnesium 1.2 L, Total Bilirubin 1.3 H, AST 74 H, ALT 97 H, Alkaline Phosphatase 140 H, Total Protein 5.7 L, Albumin 3.2, Globulin 2.5, Albumin/Globulin Ratio 1.3, Amylase 46, Lipase 20 L 01/15/18 04:30: WBC 13.3 H, RBC 4.37 L, Hgb 13.5 L, Hct 40.6 L, MCV 92.9, MCH 30.8, MCHC 33.2, RDW 14.7, Plt Count 205, MPV 7.2 L, Neut # (Auto) 11.9 H, Lymph # (Auto) 0.3 L, [place] # (Auto) 0.9, Eos # (Auto) 0.0, Baso # (Auto) 0.2 H, Absolute Nucleated RBC 0.00, Nucleated RBC % 0.0 01/15/18 00:55: Lactic Acid 0.8 01/14/18 23:55: VBG pH 7.377, Ionized Calcium 1.09 L 01/14/18 23:55: WBC 9.3, RBC 4.23 L, Hgb 13.6 L, Hct 38.7 L, MCV 91.5, MCH 32.1 H, MCHC 35.1, RDW 14.3, Plt Count 206, MPV 6.9 L, Neut # (Auto) 8.8 H, Lymph # (Auto) 0.3 L, [place] # (Auto) 0.3, Eos # (Auto) 0.0, Baso # (Auto) 0.0, Absolute Nucleated RBC 0.00, Nucleated RBC % 0.0 01/14/18 23:55: Ionized Calcium YES, Sodium 132 L, Potassium 3.3 L, Chloride 96 L, Carbon Dioxide 27, Anion Gap 9.0, BUN 12, Creatinine 0.8, Estimated GFR (MDRD) 92, Glucose 121 H, Calcium 8.2 L, Total Bilirubin 1.1 H, AST 89 H, ALT 105 H, Alkaline Phosphatase 144 H, Total Protein 5.9 L, Albumin 3.2, Globulin 2.7, Albumin/Globulin Ratio 1.2, Amylase 54 01/14/18 05:05: Lactic Acid 0.9 01/14/18 05:05: Sodium 132 L, Potassium 3.7, Chloride 93 L, Carbon Dioxide 28, Anion Gap 11.0, BUN 15, Creatinine 0.8, Estimated GFR (MDRD) 92, Glucose 114 H, Calcium 8.9, Phosphorus 3.5, Magnesium 1.1 L, Total Bilirubin 1.3 H, AST 253 H, ALT 169 H, Alkaline Phosphatase 184 H, Total Protein 6.1 L, Albumin 3.5, Globulin 2.6, Albumin/Globulin Ratio 1.3, Triglycerides 79, Cholesterol 154, LDL Cholesterol, Calc 68, VLDL Cholesterol 16, HDL Cholesterol 70, LDL/HDL Ratio 1.0, Cholesterol/HDL Ratio 2.2, Amylase 190 H, Lipase 178 H 01/14/18 05:05: PT 11.5, INR 1.0 01/14/18 05:05: WBC 8.4, RBC 4.62 L, Hgb 14.5, Hct 42.2, MCV 91.3, MCH 31.3 H, MCHC 34.3, RDW 14.6, Plt Count 229, MPV 7.0 L, Neut # (Auto) 7.0 H, Lymph # (Auto) 0.7 L, [place] # (Auto) 0.6, Eos # (Auto) 0.1, Baso # (Auto) 0.0, Absolute Nucleated RBC 0.00, Nucleated RBC % 0.0 01/13/18 18:00: Blood Type O POSITIVE, Antibody Screen NEGATIVE 01/13/18 18:00: Troponin I < 0.04 01/13/18 18:00: Sodium 132 L, Potassium 3.4 L, Chloride 92 L, Carbon Dioxide 30, Anion Gap 10.0, BUN 15, Creatinine 1.0, Estimated GFR (MDRD) 71 L, Glucose 147 H , Calcium 9.9, Total Bilirubin 1.4 H, AST 88 H, ALT 37, Alkaline Phosphatase 119, Total Protein 6.2 L, Albumin 3.8, Globulin 2.4, Albumin/Globulin Ratio 1.6, Lipase 1595 H 01/13/18 18:00: PT 11.9, INR 1.1 01/13/18 18:00: WBC 10.1, RBC 4.77, Hgb 14.8, Hct 43.9, MCV 91.9, MCH 31.0, MCHC 33.7, RDW 14.5, Plt Count 296, MPV 7.0 L, Neut # (Auto) 7.9 H, Lymph # (Auto) 1.4 L, [place] # (Auto) 0.7, Eos # (Auto) 0.1, Baso # (Auto) 0.1, Absolute Nucleated RBC 0.00, Nucleated RBC % 0.0 Lab results reviewed: Yes Fish Bones: 01/15/18 04:30 01/15/18 04:30 Home Medications and Allergies Home Medications: Ambulatory Orders Finasteride 5 mg PO DAILY 01/13/18 Tamsulosin HCl [Flomax] 0.4 mg PO DAILY 01/13/18 Multivitamin [Multiple Vitamins] 1 each PO DAILY 01/14/18 Active Medications Acetaminophen (Tylenol) 650 mg PO Q4HR PRN PRN Reason: Pain 1 to 4 Last Admin: 01/14/18 23:52 Dose: 650 mg Allopurinol (Zyloprim) 100 mg PO DAILY [facility] Last Admin: 01/15/18 11:00 Dose: 100 mg Aspirin ([facility] Aspirin) 81 mg PO DAILY [facility] Last Admin: 01/15/18 11:00 Dose: 81 mg Enoxaparin Sodium (Lovenox) 40 mg SUBQ DAILY [facility] Last Admin: 01/15/18 08:21 Dose: Not Given Finasteride (Proscar) 5 mg PO QPM [facility] Last Admin: 01/14/18 20:17 Dose: 5 mg Hydrochlorothiazide (Hydrodiuril) 50 mg PO DAILY [facility] Last Admin: 01/15/18 11:01 Dose: Not Given Famotidine (Pepcid 20 Mg/50 Ml) 50 mls @ 100 mls/hr IV BID [facility] Last Infusion: 01/15/18 11:35 Dose: Infused Piperacillin Sod/Tazobactam (Sod 3.375 gm/ Sodium Chloride) 100 mls @ 25 mls/hr IV Q8H [facility] Last Admin: 01/15/18 13:06 Dose: 25 mls/hr Sodium Chloride (Normal Saline 0.9%) 1,000 mls @ 83.333 mls/hr IV .Q12H [facility] Last Admin: 01/15/18 11:01 Dose: 83.333 mls/hr Losartan Potassium (Cozaar) 100 mg PO DAILY [facility] Last Admin: 01/15/18 11:00 Dose: 100 mg Morphine Sulfate (Morphine (Carpuject)) 2 mg IVP Q2HR PRN PRN Reason: Pain 8 to 10 Last Admin: 01/15/18 13:12 Dose: 2 mg Multivitamins (Theragran) 1 tab PO DAILYWM [facility] Last Admin: 01/15/18 08:21 Dose: Not Given Ondansetron HCl (Zofran Inj) 4 mg IVP Q6HR PRN PRN Reason: Nausea / Vomiting Last Admin: 01/14/18 03:43 Dose: 4 mg Oxycodone HCl (Roxicodone) 5 mg PO Q4HR PRN PRN Reason: Pain 5 to 7 Last Admin: 01/15/18 07:44 Dose: 5 mg Oxycodone HCl (Roxicodone) 10 mg PO Q4HR PRN PRN Reason: Pain 8 to 10 Polyethylene Glycol (Miralax) 17 gm PO DAILY [facility] Last Admin: 01/15/18 08:22 Dose: Not Given Prochlorperazine Edisylate (Compazine Inj) 10 mg IVP Q6HR PRN PRN Reason: Nausea / Vomiting Promethazine HCl (Phenergan Inj) 25 mg IM Q6HR PRN PRN Reason: Nausea / Vomiting Sodium Chloride (Normal Saline Flush 0.9%) 10 ml IVP PRN PRN PRN Reason: NEEDED PER PROVIDER ORDERS Last Admin: 01/14/18 03:43 Dose: 10 ml Sodium Chloride (Normal Saline Flush 0.9%) 10 ml IVP 0100,0900,1700 [facility] Last Admin: 01/15/18 11:01 Dose: 10 ml Tamsulosin HCl (Flomax) 0.4 mg PO QPM [facility] Last Admin: 01/14/18 20:17 Dose: 0.4 mg Temazepam (Restoril) 7.5 mg PO QPM PRN PRN Reason: Insomnia Last Admin: 01/14/18 21:34 Dose: 7.5 mg Allopurinol 100 mg PO DAILY 12/03/12 Aspirin 81 mg PO DAILY 12/03/12 Hydrochlorothiazide 50 mg PO DAILY 12/03/12 Losartan [Cozaar] 100 mg PO DAILY 12/03/12 Finasteride 5 mg PO DAILY 01/13/18 Tamsulosin HCl [Flomax] 0.4 mg PO DAILY 01/13/18 Multivitamin [Multiple Vitamins] 1 each PO DAILY 01/14/18 Allergies/Adverse Reactions: Allergies Allergy/AdvReac Type Severity Reaction Status Date / Time No Known Drug Allergies Allergy Verified 01/13/18 18:08 Anes History & Medical History - Anesthetic History Anesthesia Complications: reports: No previous complications Family history of Anesthesia Complications: Denies Family history of Malignant Hyperthermia: Denies - Medical History Cardiovascular: reports: Hypertension Pulmonary: reports: None Gastrointestinal: reports: Colon polyps Urinary: reports: Benign prostate hypertrophy, Kidney stones Musculoskeletal: reports: Osteoarthritis, Gout Smoking Status: Never smoker - Surgical History General: Colonoscopy Orthopedic: Knee replacement, Carpal Tunnel surgery Results - EKG Results EKG Comparison: Reviewed EKG Exam General: Alert, Oriented x3, Cooperative Dental: Dentures full Upper (out) Mouth Opening: Greater than 4 Fingerbreadths Neck Mobility: Normal Mallampati classification: II Thyromental Distance: greater than 6 cm Respiratory: Lungs clear, Decreased breath sounds Cardiovascular: Regular rate Neurological: Normal speech Mental/Cognitive Status: Alert/Oriented X3, Normal for patient Cognitive Status: Within normal limits Plan Anesthesia Type: General Consent for Procedure(s) Verified and Reviewed: Yes Code Status: Attempt Resuscitation ASA classification: 2-Mild systemic disease Is this case an emergency?: No
[2018-01-15] MEDS: SODIUM CHLORIDE FLUSH 0.9% 10 ML SYRINGE IVP PRN (15:49)
--- NOTE | 2018-01-15 16:02 | PROVIDER PROGRESS NOTE ---
Subjective - Prog Note Date Prog Note Date: 01/15/18 Prog Note Time: 16:02 - Subjective Subjective: He grew out gram-negative rods in his blood cultures from last night. He apparently spiked a fever and was started on antibiotics. He has successfully gone to the OR. He was found to have an early necrosis of his gallbladder. He is on perioperative antibiotics at this time. Surgeon feels that he could be advanced on his diet quickly. Current Medications - Current Medications Current Medications: Active Medications Acetaminophen (Tylenol) 650 mg PO Q4HR PRN PRN Reason: Pain 1 to 4 Last Admin: 01/14/18 23:52 Dose: 650 mg Allopurinol (Zyloprim) 100 mg PO DAILY [facility] Last Admin: 01/15/18 11:00 Dose: 100 mg Aspirin ([facility] Aspirin) 81 mg PO DAILY [facility] Last Admin: 01/15/18 11:00 Dose: 81 mg Enoxaparin Sodium (Lovenox) 40 mg SUBQ DAILY [facility] Last Admin: 01/15/18 08:21 Dose: Not Given Finasteride (Proscar) 5 mg PO QPM [facility] Last Admin: 01/14/18 20:17 Dose: 5 mg Hydrochlorothiazide (Hydrodiuril) 50 mg PO DAILY [facility] Last Admin: 01/15/18 11:01 Dose: Not Given Hydromorphone HCl (Dilaudid Inj Carp) 0.5 mg IVP Q2HR PRN PRN Reason: PAIN Famotidine (Pepcid 20 Mg/50 Ml) 50 mls @ 100 mls/hr IV BID [facility] Last Infusion: 01/15/18 11:35 Dose: Infused Sodium Chloride (Normal Saline 0.9%) 1,000 mls @ 83.333 mls/hr IV .Q12H [facility] Last Admin: 01/15/18 11:01 Dose: 83.333 mls/hr Potassium Chloride/Dextrose/Sod Cl () 1,000 mls @ 100 mls/hr IV .Q10H [facility] Last Admin: 01/15/18 19:46 Dose: 100 mls/hr Acetaminophen (Ofirmev) 100 mls @ 400 mls/hr IV Q6H [facility] Last Admin: 01/15/18 19:41 Dose: Not Given Piperacillin Sod/Tazobactam (Sod 3.375 gm/ Sodium Chloride) 100 mls @ 200 mls/hr IV Q6HR [facility] Stop: 01/16/18 12:29 Losartan Potassium (Cozaar) 100 mg PO DAILY [facility] Last Admin: 01/15/18 11:00 Dose: 100 mg Morphine Sulfate (Morphine (Carpuject)) 2 mg IVP Q2HR PRN PRN Reason: Pain 8 to 10 Last Admin: 01/15/18 15:49 Dose: 2 mg Multivitamins (Theragran) 1 tab PO DAILYWM [facility] Last Admin: 01/15/18 08:21 Dose: Not Given Ondansetron HCl (Zofran Inj) 4 mg IVP Q6HR PRN PRN Reason: Nausea / Vomiting Last Admin: 01/14/18 03:43 Dose: 4 mg Oxycodone HCl (Roxicodone) 5 mg PO Q4HR PRN PRN Reason: Pain 5 to 7 Last Admin: 01/15/18 07:44 Dose: 5 mg Oxycodone HCl (Roxicodone) 10 mg PO Q4HR PRN PRN Reason: Pain 8 to 10 Pantoprazole Sodium (Protonix) 40 mg PO QDAC [facility] Polyethylene Glycol (Miralax) 17 gm PO DAILY [facility] Last Admin: 01/15/18 08:22 Dose: Not Given Prochlorperazine Edisylate (Compazine Inj) 10 mg IVP Q6HR PRN PRN Reason: Nausea / Vomiting Promethazine HCl (Phenergan Inj) 25 mg IM Q6HR PRN PRN Reason: Nausea / Vomiting Sodium Chloride (Normal Saline Flush 0.9%) 10 ml IVP PRN PRN PRN Reason: NEEDED PER PROVIDER ORDERS Last Admin: 01/15/18 15:49 Dose: 10 ml Sodium Chloride (Normal Saline Flush 0.9%) 10 ml IVP 0100,0900,1700 [facility] Last Admin: 01/15/18 16:54 Dose: Not Given Sodium Chloride (Normal Saline Flush 0.9%) 10 ml IVP 0100,0900,1700 [facility] Sodium Chloride (Normal Saline Flush 0.9%) 10 ml IVP PRN PRN PRN Reason: NEEDED PER PROVIDER ORDERS Tamsulosin HCl (Flomax) 0.4 mg PO QPM [facility] Last Admin: 01/14/18 20:17 Dose: 0.4 mg Temazepam (Restoril) 7.5 mg PO QPM PRN PRN Reason: Insomnia Last Admin: 01/14/18 21:34 Dose: 7.5 mg Allopurinol 100 mg PO DAILY 12/03/12 Aspirin 81 mg PO DAILY 12/03/12 Hydrochlorothiazide 50 mg PO DAILY 12/03/12 Losartan [Cozaar] 100 mg PO DAILY 12/03/12 Finasteride 5 mg PO DAILY 01/13/18 Tamsulosin HCl [Flomax] 0.4 mg PO DAILY 01/13/18 Multivitamin [Multiple Vitamins] 1 each PO DAILY 01/14/18 Objective - Vital Signs/Intake & Output Reviewed Vital Signs: Yes Vital Signs: Vital Signs x48h Temp Pulse Resp BP Pulse Ox 01/15/18 15:32 37.8 C H 81 20 143/80 H 94 Intake & Output: Intake & Output 01/12/18 01/13/18 01/14/18 01/15/18 23:59 23:59 23:59 23:59 Intake Total 3140 1731.66 Output Total 100 1250 850 Balance -100 1890 881.66 - Objective General Appearance: positive: Alert, Lethargic (In the OR he dropped his pulse to 30 with insufflation. They needed to drop the insufflation down to 8 mmHg, he is still a little sleepy in the postoperative setting.) Eyes Bilateral: positive: PERRL, EOMI ENT: positive: Pharynx nml Neck: positive: No JVD. negative: Carotid bruit Respiratory: positive: Chest non-tender (Barrel chest), No respiratory distress. negative: Breath sounds nml (Diffusely quiet lungs but no respiratory distress), Wheezes, Rales, Rhonchi Cardiovascular: positive: Irregularly irregular, Systolic murmur. negative: Gallop/S4, Friction rub Abdomen: positive: Other (Obese belly, distended from the insufflation associated with surgery. Very hypoactive bowel sounds. No rebound or guarding. Has a little bit of tenderness in the right upper quadrant and epigastrium.) Skin: positive: Warm, Dry Extremities: positive: Pedal edema Neurologic/Psychiatric: positive: Oriented x3, CN's nml (2-12), Motor nml - Lab Results Fish Bones: 01/15/18 04:30 01/15/18 04:30 Other Labs: Lab Results x24hrs 01/15/18 01/15/18 01/15/18 Range/Units 04:30 04:30 00:55 WBC 13.3 H (4.8-10.8) x10^3/uL RBC 4.37 L (4.70-6.10) 10^6/uL Hgb 13.5 L (14.0-18.0) g/dL Hct 40.6 L (42.0-52.0) % MCV 92.9 (80.0-94.0) fL MCH 30.8 (27.0-31.0) pg MCHC 33.2 (32.0-36.0) g/dL RDW 14.7 (12.0-15.0) % Plt Count 205 (130-450) 10^3/uL MPV 7.2 L (7.4-11.4) fL Neut # (Auto) 11.9 H (1.5-6.6) 10^3/uL Lymph # (Auto) 0.3 L (1.5-3.5) 10^3/uL [place] # (Auto) 0.9 (0.0-1.0) 10^3/uL Eos # (Auto) 0.0 (0.0-0.7) 10^3/uL Baso # (Auto) 0.2 H (0.0-0.1) 10^3/uL Absolute Nucleated RBC 0.00 x10^3/uL Nucleated RBC % 0.0 /100WBC VBG pH (7.31-7.41) Ionized Calcium (1.15-1.33) mmol/L Sodium 132 L (135-145) mmol/L Potassium 3.5 (3.5-5.0) mmol/L Chloride 99 L (101-111) mmol/L Carbon Dioxide 25 (21-32) mmol/L Anion Gap 8.0 (6-13) BUN 12 (6-20) mg/dL Creatinine 0.7 (0.6-1.2) mg/dL Estimated GFR (MDRD) 107 (>89) Glucose 127 H (70-100) mg/dL Lactic Acid 0.8 (0.5-2.2) mmol/L Calcium 8.4 L (8.5-10.3) mg/dL Phosphorus 3.6 (2.5-4.6) mg/dL Magnesium 1.2 L (1.7-2.8) mg/dL Total Bilirubin 1.3 H (0.2-1.0) mg/dL AST 74 H (10-42) IU/L ALT 97 H (10-60) IU/L Alkaline Phosphatase 140 H (42-121) IU/L Total Protein 5.7 L (6.7-8.2) g/dL Albumin 3.2 (3.2-5.5) g/dL Globulin 2.5 (2.1-4.2) g/dL Albumin/Globulin Ratio 1.3 (1.0-2.2) Amylase 46 (28-100) U/L Lipase 20 L (22-51) U/L 01/14/18 01/14/18 01/14/18 Range/Units 23:55 23:55 23:55 WBC 9.3 (4.8-10.8) x10^3/uL RBC 4.23 L (4.70-6.10) 10^6/uL Hgb 13.6 L (14.0-18.0) g/dL Hct 38.7 L (42.0-52.0) % MCV 91.5 (80.0-94.0) fL MCH 32.1 H (27.0-31.0) pg MCHC 35.1 (32.0-36.0) g/dL RDW 14.3 (12.0-15.0) % Plt Count 206 (130-450) 10^3/uL MPV 6.9 L (7.4-11.4) fL Neut # (Auto) 8.8 H (1.5-6.6) 10^3/uL Lymph # (Auto) 0.3 L (1.5-3.5) 10^3/uL [place] # (Auto) 0.3 (0.0-1.0) 10^3/uL Eos # (Auto) 0.0 (0.0-0.7) 10^3/uL Baso # (Auto) 0.0 (0.0-0.1) 10^3/uL Absolute Nucleated RBC 0.00 x10^3/uL Nucleated RBC % 0.0 /100WBC VBG pH 7.377 (7.31-7.41) Ionized Calcium 1.09 L YES (1.15-1.33) mmol/L Sodium 132 L (135-145) mmol/L Potassium 3.3 L (3.5-5.0) mmol/L Chloride 96 L (101-111) mmol/L Carbon Dioxide 27 (21-32) mmol/L Anion Gap 9.0 (6-13) BUN 12 (6-20) mg/dL Creatinine 0.8 (0.6-1.2) mg/dL Estimated GFR (MDRD) 92 (>89) Glucose 121 H (70-100) mg/dL Lactic Acid (0.5-2.2) mmol/L Calcium 8.2 L (8.5-10.3) mg/dL Phosphorus (2.5-4.6) mg/dL Magnesium (1.7-2.8) mg/dL Total Bilirubin 1.1 H (0.2-1.0) mg/dL AST 89 H (10-42) IU/L ALT 105 H (10-60) IU/L Alkaline Phosphatase 144 H (42-121) IU/L Total Protein 5.9 L (6.7-8.2) g/dL Albumin 3.2 (3.2-5.5) g/dL Globulin 2.7 (2.1-4.2) g/dL Albumin/Globulin Ratio 1.2 (1.0-2.2) Amylase 54 (28-100) U/L Lipase (22-51) U/L ABX Reporting Has patient been on IV antibiotics over the past 48 hours?: Yes Assessment/Plan - Problem List (1) Acute cholecystitis due to biliary calculus Impression: Initially thought to have only cholelithiasis. But MRI confirms cholecystitis. He did spike a temperature last night. We had deliberated whether we would start him on antibiotics on admission and we did not. But with a temperature spike he was started on single agent Zosyn. He went to the OR today. Plan: POD #0 diet and pain per surgeon orders. (2) Acute pancreatitis Impression: The patient presented with sudden onset abdominal pain with radiation to the back. On presentation the patient was found to have a lipase of 1595. Patient's CT and abdominal ultrasound showed gallbladder stones and sludge. The patient did not have a dilated common bile duct and LFTs were only mildly elevated. The patient does admit to drinking 2 glasses of whiskey nightly but has not had any change in his alcohol intake. The patient has gallstone pancreatitis.Today's amylase and lipase is completely normal. 190 amylase went to 46. 178 lipase went to 20. Plan: Continue : Bowel rest n.p.o. yesterday diet to be advanced after surgery IV fluids IV morphine for pain control IV Zofran and Compazine for nausea control Supportive care Surgery consult for possible cholecystectomy recommended cholecytecomy before the patient left the hospital. MRCP done and no CBD stone. Lipid profile has triglycerides of 70. Qualifiers: Pancreatitis type: biliary Acute pancreatitis complication: no infection or necrosis Qualified Code(s): K85.10 - Biliary acute pancreatitis without necrosis or infection (3) Hyponatremia Conclusion/Plan: Patient presents with a mild hyponatremia with a sodium of 132>132>132 today. Patient appears to have hypovolemic hyponatremia likely secondary to dehydration and nausea due to ongoing pancreatitis. Plan: IV fluids Monitor sodium (4) Hypokalemia Conclusion/Plan: The patient has a mild hypokalemia on presentation with a potassium of 3.4. Likely patient has hypokalemia secondary to ongoing pancreatitis and nausea. Patient will be given potassium replacement and potassium will be monitored. Today he is normal. (5) Hypertension Conclusion/Plan: The patient is a history of hypertension and uses hydrochlorothiazide and losart an at home. Patient is currently n.p.o. and we will hold his antihypertensives for now as his blood pressure is within normal limits. If the patient's blood pressure does become significantly elevated we will place him on IV antihypertensives until he is able to start a diet at which point we can restart his home antihypertensives.Blood pressure was 176-180/77-95 on 01/14. Blood pressure is low today. [id number]. Qualifiers: Hypertension type: essential hypertension Qualified Code(s): I10 - Essential (primary) hypertension (6) BPH (benign prostatic hyperplasia) Conclusion/Plan: Patient has a history of BPH and takes Flomax and finasteride at home. These medications will be continued once the patient is able to start a diet.
[2018-01-15] MEDS ORDERED: SODIUM CHLORIDE 0.9% 1,000 ML IV ONE (16:37)
[2018-01-15] MEDS ORDERED: LACTATED RINGERS 1,000 ML IV ONE ×2 (16:37→18:00)
--- NOTE | 2018-01-15 16:46 | CONSULTATION NOTE ---
Referring Provider Name of Referring Provider:: Dr. Antonio Consult Date: 01/14/18 Chief Complaint - Chief Complaint Chief Complaint: Severe abdominal pain History of Present Illness - Admitted From Admitted From:: [facility] ED - History Obtained From Records Reviewed: Yes History obtained from: Patient and chart Exam Limitations: None although the patient was/is HUSLIA and I had lost my voice - History of Present Illness HPI Comment/Other: This is an 82-year-old very pleasant male evaluated in room 2311 at [facility]'s MedSurg unit after he been admitted through the emergency department with severe abdominal pain that was determined to be galls tone pancreatitis. The patient was in his usual state of health (with multiple comorbidities) when he experienced the abrupt onset of abdominal pain at 430 to 5:00 on January 13. Severity of the pain and its persistence prompted his son to call emergency services and they brought him into the emergency department at [facility]. The pain was described as severe and epigastric. It was rather unremitting only settling down with the administration of pain medication. There was some associated nausea but no vomiting. The pain was described as very sharp. The patient never had this pain previously. History - Past Medical History Cardiovascular: reports: Hypertension Respiratory: reports: None GI: reports: Colon polyps : reports: Benign prostate hypertrophy, Kidney stones Musculoskeletal: reports: Osteoarthritis, Gout MRSA Hx?: No - Past Surgical History General: reports: Colonoscopy Ortho: reports: Knee replacement, Carpal Tunnel surgery - Family & Social History Family History: Mother: , Cancer, Father: , CAD Living arrangement: At home Living Situation: Alone Social History Notes: The patient states he grew up in [place] but lived most of his life in the [facility] before moving to [place] 21 years ago. He states that him and his moved to [place] as there son was living there after he retired from the [employer] and they love the area. He states that his in 2011 and he has been living alone since. His son does live nearby in [place]. The patient is very independent and still is able to perform all his activities of daily living. He states that he does use a walker when he goes shopping but otherwise is able to ambulate around the house without much difficulties. The patient states that he was a former smoker and smoked 1- 2 packs/day for just over 20 years and quit in 1977. He states that he does drink 2 glasses of whiskey every night. He denies any illicit drug use. - POLST Patient has POLST: No POLST Status: Full Code Meds/Allgy - Home Medications Home Medications: Ambulatory Orders Medication Instructions Recorded Confirmed Allopurinol 100 mg PO DAILY 12/03/12 01/14/18 Aspirin 81 mg PO DAILY 12/03/12 01/14/18 Hydrochlorothiazide 50 mg PO DAILY 12/03/12 01/14/18 Losartan [Cozaar] 100 mg PO DAILY 12/03/12 01/14/18 Finasteride 5 mg PO DAILY 01/13/18 01/14/18 Tamsulosin HCl [Flomax] 0.4 mg PO DAILY 01/13/18 01/14/18 Multivitamin [Multiple Vitamins] 1 each PO DAILY 01/14/18 01/14/18 - Allergies Allergies/Adverse Reactions: Allergies Allergy/AdvReac Type Severity Reaction Status Date / Time No Known Drug Allergies Allergy Verified 01/13/18 18:08 Review of Systems - Constitutional Constitutional: reports: Fatigue. denies: Fever, Chills - Eyes Eyes: denies: Pain - Ears, Nose & Throat Ears, Nose & Throat: reports: Hearing loss, Hearing aids. denies: Ear pain - Cardiovascular Cariovascular: denies: Irregular heart rate, Palpitations, Chest pain - Respiratory Respiratory: denies: Cough, Sputum production, Wheezing - Gastrointestinal Gastrointestinal: reports: Abdominal pain, Nausea. denies: Constipation, Diarrhea, Black stools, Bloody stools, Vomiting - Genitourinary Genitourinary: denies: Dysuria - Musculoskeletal Musculoskeletal: reports: Muscle pain, Back pain, Stiffness - Integumentary Integumentary: denies: Rash Exam - Vital Signs Reviewed Vital Signs: Yes Vital Signs: Vital Signs x48h Temp Pulse Resp BP Pulse Ox 01/15/18 15:32 37.8 C H 81 20 143/80 H 94 - Physical Exam General Appearance: positive: No acute distress Eyes Bilateral: positive: No lid inflammation, Conjunctivae nml, No scleral icterus ENT: positive: Dry mucous membranes Neck: positive: Trachea midline Respiratory: positive: Chest non-tender, No respiratory distress, Breath sounds nml (Slightly diminished bilaterally anterolaterally.) Cardiovascular: positive: Regular rate & rhythm Abdomen: positive: Tenderness (In the epigastrium and supraumbilical region.) Skin: positive: Color nml Extremities: positive: Non-tender, Nml appearance Neurologic/Psychiatric: positive: Oriented x3 Conclusion/Plan - Diagnosis Diagnosis: Gallstone pancreatitis - Plan Plan: Laparoscopic cholecystectomy, possible open cholecystectomy, possible intrao perative cholangiogram, possible common bile duct exploration. The indications, procedure, alternatives including no surgery, possible risks including infection (deep or superficial), bleeding requiring transfusion (with all of its risks), common bile duct injury and were fully explained to the patient and all questions answered. I explained that following the surgery I did not want him lifting anything over 15 pounds for 6 weeks to allow for optimal healing and to decrease the likelihood that a hernia would occur. All questions were fully answered. Verbal and written consent was obtained. The patient, in preparation for surgery will be nothing by mouth, receive a soap and water shower, and receive 2 g of Ancef with induction. I asked him to contact me with any surgical questions and his concerns and he stated that he would. I asked him to let me know if there is any way we can make his say at [facility] more comfortable and he stated that he would let me know. 45 minutes of [id number] time spent with the patient, over 80% in discussion, coordination of his care, and completion of the requisite paperwork Americo disclaimer: This document was created in part using voice recognition technology. Because of the inherent limitations of the system ([employer]'s Dragon Dictate user manual states that the licensee understands that speech recognition is a statistical process and that recognition errors are inherent in the process), occasional same sounding word substitutions and grammatical errors do occur and persist despite proofreading. Please read this document for context. - Lab Results Lab results reviewed: Yes Fish Bones: 01/15/18 04:30 01/15/18 04:30 - Diagnostic Imaging Results Diagnostic Imaging Results: positive: Final report reviewed, Read independently (MRCP showing no choledocholithiasis.)
[2018-01-15] MEDS ORDERED: LIDOCAINE-MPF 2% 5 ML VIAL IM ONE (17:15)
[2018-01-15] MEDS ORDERED: PHENYLEPHRINE 50 MG/5 ML VIAL IV ONE (17:15)
[2018-01-15] MEDS ORDERED: PROPOFOL 200 MG/20 ML VIAL IVP ONE (17:15)
[2018-01-15] MEDS ORDERED: ROCURONIUM 50 MG/5 ML VIAL IVP ONE (17:15)
[2018-01-15] MEDS ORDERED: MIDAZOLAM 2 MG/2 ML VIAL IVP ONE (17:15)
[2018-01-15] MEDS ORDERED: NEOSTIGMINE 1 MG/1 ML 10 ML MDV IVP ONE (17:15)
[2018-01-15] MEDS ORDERED: ONDANSETRON 4 MG/2 ML VIAL IVP ONE (17:15)
[2018-01-15] MEDS ORDERED: DEXAMETHASONE 4 MG/ML VIAL IVP ONE (17:15)
[2018-01-15] MEDS ORDERED: GLYCOPYRROLATE 1 MG/5 ML VIAL IVP ONE (17:15)
[2018-01-15] MEDS ORDERED: FLUMAZENIL 0.1 MG/1 ML 5 ML MDV IVP ONE (17:15)
[2018-01-15] MEDS ORDERED: fentaNYL 100 MCG/2 ML VIAL IVP ONE (17:15)
[2018-01-15] MEDS ORDERED: BUPIVACAINE 0.25% PF 30 ML VIAL SUBQ ONE ×2 (17:32→18:30)
--- NOTE | 2018-01-15 18:40 | OPERATIVE REPORT ---
Operative Report - General Admit Date: 01/13/18 Procedure Date: 01/15/18 Planned Procedure: Laparoscopic cholecystectomy with intraoperative cholangiogram, possible op Pre-Op Diagnosis: Gallstone pancreatitis Procedure Performed: Laparoscopic cholecystectomy with umbilical herniorrhaphy Post Op Diagnosis: Necrotic/gangrenous gallbladder and large umbilical hernia - Procedure Note Primary Surgeon: Lonnie Myers MD Anesthesia Provider: Alan Jay CRNA Anesthesia Technique: General ET tube, Local (30 mL of half percent Marcaine) IV Fluids (mL): 1,300 Estimated Blood Loss (mL): 100 Complications: None - Other Other Information/Narrative: OPERATIVE DESCRIPTION/REPORT: After verbal and written informed consent was obtained detailing the risks of infection, bleeding with all of its risks including transfusion, common bile duct injury, and the patient was brought to the operative suite and placed in the supine position on the operating room table. Monitoring devices were applied along with TEDs and pneumatic compressive stockings. Care was taken to avoid pressure points. Prophylactic antibiotics were given. An adequate level of general endotracheal anesthesia was established by Alan Jay CRNA. The abdomen was then prepped with ChloraPrep and draped in a sterile fashion. A "time in" then confirmed that the patient was identified with 3 identifiers (name, date and medical record number), the history and physical was in the chart, the signed consent confirming the procedure was in the chart, the patient was in the correct position, the aforementioned prophylactic measures were in place or given, we had the correct personnel and equipment to complete the procedure and that anesthesia, surgery and nursing were given an opportunity to express any concerns. The initial incision was at the umbilicus and dissection to the large umbilical hernia was completed using Bovie electrocautery. The hernia sac was grasped and excised using Bovie electrocautery gaining easy entry into the abdomen. In fact the defect was so large that the 12 mm port could not be placed and the balloon inflated to keep it in place without closing the fascial defect partially. The fascia was closed on either side using an 0 Vicryl suture in a oxjkcp-oq-maodi fashion thus closing the fascial defect slightly and allowing the balloon of the ports to inflate and obstruct any leakage of carbon dioxide. In this location, a 12 mm blunt tipped, balloon tipped port was placed and the balloon was inflated to keep the port in position. The abdominal cavity was insufflated with carbon dioxide to steady-state pressure of 15 mmHg. Almost immediately upon reaching that pressure of the patient went into severe bradycardia with a heart rate into the 30s and the insufflation was immediately released. Timely intervention by our anesthesiologist as well as changing the insufflation pressure 8 mmHg allowed the procedure to go forward. Three additional 5 mm ports were placed in standard location for laparoscopic cholecystectomy (subxiphoid and 2 right subcostal) under direct vision of the 30 degree laparoscope and without incident. The patient was then placed in reverse Trendelenburg position and was rotated slightly to their left. The gallbladder was noted to be massively enlarged and in areas necrotic. Due to the massive distention and size the gallbladder could not be grasped using standard Prestige graspers. As such, I was forced to deflate the gallbladder with an laparoscopic needle removing a large amount of thick brown green bloody bile. Once the gallbladder was desufflated, the gallbladder fundus was grasped with an atraumatic grasper. Multiple adhesions had to be taken down by blunt and sharp dissection along with electrocautery. Eventually, we identified the infundibulum, and this was then grasped and retracted inferior and laterally. Dissection was then begun in the angle of Calot. The angle of Calot was socked in with inflammation, and only with meticulous layer by layer dissection was I able to identify the cystic duct and (slightly medially and posteriorly) cystic artery. The critical view was obtained. Two clips proximally and one clip distally were used to control both the cystic duct and cystic artery. The clips were carefully placed to avoid occluding the juncture with the common bile duct. Both the cystic duct and then the cystic artery were then transected with laparoscopic reese. Upon transecting the cystic artery there were some branch points that were noted posteriorly and laterally that bled requiring additional placement of 2 clips. The gallbladder was then removed from its fossa in a retrograde fashion using electrocautery. This was made particularly difficult due to a large amount of edema as well as a very thin-walled and necrotic gallbladder wall. Several areas of the gallbladder bed required Bovie electrocautery to control some hepatic bleeding. The gallbladder was eventually detached from the liver bed and with the 30 degree 5 mm scope in the subxiphoid position, the gallbladder was placed in an EndoCatch bag to be extracted through the 12 mm port site. I irrigated the right upper quadrant with 3 liters of warm sterile saline, and the area was aspirated dry. I inspected the gallbladder fossa and there was no bleeding or bile leak. Clips on the cystic duct and cystic artery appeared to be secure. I briefly visually explored the abdomen. There was no other evidence of overt pathology. I injected the port sites at the peritoneal, fascial, and skin levels under direct vision with 0.5% Marcaine. All ports and the EndoCatch containing the gallbladder were removed. Following gallbladder removal, the remaining carbon dioxide was expelled from the abdomen. The fascia at the umbilicus was reapproximated using 5 vrlavk-df-zossi 0 Vicryl sutures thus repairing the umbilical hernia. The skin at each port site was approximated using a subcuticular 4-0 Monocryl. The surgical count of instruments, needles and sponges was reported as correct twice. Mastisol, Steri-Strips and sterile surgical dressings were applied. The patient was then awakened from anesthesia, extubated, and having tolerated the procedure well, was transported to the recovery room. No complications were encountered. A "time out" confirmed the operation performed, the fluids given, the estimated blood loss and anesthesia, surgery and nursing were given an opportunity to express any concerns. Hammerless disclaimer: This document was created in part using voice recognition technology. Because of the inherent limitations of the system ([employer]'s Hammerless Dictate user manual states that the licensee understands that speech recognition is a statistical process and that recognition errors are inherent in the process), occasional same sounding word substitutions and grammatical errors do occur and persist despite proofreading. Please read this document for context.
[2018-01-15] MEDS ORDERED: oxyCODONE 5 MG TABLET PO PRN (18:50)
[2018-01-15] MEDS ORDERED: SODIUM CHLORIDE FLUSH 0.9% 10 ML SYRINGE IVP PRN (18:50)
[2018-01-15] MEDS ORDERED: HYDROmorphone 1 MG/ML CARPUJECT IVP PRN (18:50)
[2018-01-15] MEDS ORDERED: ACETAMINOPHEN 1,000 MG/100 ML 100 ML IV ONE (19:06)
[2018-01-15] MEDS: ACETAMINOPHEN 1,000 MG/100 ML 100 ML IV SCH (19:41)
[2018-01-15] MEDS: D5NS W/20 MEQ KCL 1,000 ML IV SCH (19:46)
[2018-01-15] MEDS: FINASTERIDE 5 MG TABLET PO SCH (21:00)
[2018-01-15] MEDS: TAMSULOSIN 0.4 MG CAPSULE PO SCH (21:00)
[2018-01-16] MEDS: ACETAMINOPHEN 1,000 MG/100 ML 100 ML IV SCH ×3 (00:18→13:26)
[2018-01-16] MEDS: SODIUM CHLORIDE FLUSH 0.9% 10 ML SYRINGE IVP SCH ×6 (00:19→16:25)
[2018-01-16] MEDS: PIPERACILLIN/TAZOBACTAM 3.375 GM in SODIUM CHLORIDE 0.9% MINIBAG 100 ML IV SCH ×3 (00:19→12:01)
[2018-01-16 05:12] LABS: BASOPHILS % (AUTO) 0.2 %; HGB - HEMOGLOBIN 12.6 g/dL (14.0-18.0); LYMPHOCYTES # (AUTO) 0.5 10^3/uL (1.5-3.5); LYMPHOCYTES % (AUTO) 3.9 %; MEAN CORPUSCULAR HEMOGLOBIN 31.4 pg (27.0-31.0); MEAN CORPUSCULAR HGB CONC 33.7 g/dL (32.0-36.0); MEAN CORPUSCULAR VOLUME 93.1 fL (80.0-94.0); MEAN PLATELET VOLUME 7.6 fL (7.4-11.4); MONOCYTES # (AUTO) 0.7 10^3/uL (0.0-1.0); MONOCYTES % (AUTO) 6.1 %; NEUTROPHILS # (AUTO) 10.5 10^3/uL (1.5-6.6); NEUTROPHILS % (AUTO) 89.8 %; PLT - PLATELET COUNT 163 10^3/uL (130-450); RED BLOOD COUNT 4.01 10^6/uL (4.70-6.10); RED CELL DISTRIBUTION WIDTH 14.7 % (12.0-15.0); WHITE BLOOD COUNT 11.7 x10^3/uL (4.8-10.8)
[2018-01-16 05:23] LABS: ALBUMIN 2.5 g/dL (3.2-5.5); ALBUMIN/GLOBULIN RATIO 0.9 (1.0-2.2); CALCIUM 7.5 mg/dL (8.5-10.3); CREATININE 0.9 mg/dL (0.6-1.2); MAGNESIUM 1.4 mg/dL (1.7-2.8); PHOSPHORUS 2.8 mg/dL (2.5-4.6); TOTAL PROTEIN 5.2 g/dL (6.7-8.2)
[2018-01-16] MEDS: D5NS W/20 MEQ KCL 1,000 ML IV SCH (06:32)
[2018-01-16] MEDS ORDERED: PANTOPRAZOLE 40 MG TABLET PO SCH (07:00)
[2018-01-16] MEDS: ALLOPURINOL 100 MG TABLET PO SCH (08:30)
[2018-01-16] MEDS: LOSARTAN 50 MG TABLET PO SCH (08:30)
[2018-01-16] MEDS: FAMOTIDINE 20 MG/50 ML 50 ML IV SCH (08:30)
[2018-01-16] MEDS: ASPIRIN CHEW 81 MG TABLET PO SCH (08:30)
[2018-01-16] MEDS: hydroCHLOROthiazide 25 MG TABLET PO SCH (08:30)
[2018-01-16] MEDS: MULTIVITAMIN TABLET PO SCH (08:30)
[2018-01-16] MEDS: POLYETHYLENE GLYCOL 3350 17 GM PACKET PO SCH (08:30)
[2018-01-16] MEDS: ENOXAPARIN 40 MG/0.4 ML SYRINGE SUBQ SCH (08:35)
[2018-01-16] MEDS: SODIUM CHLORIDE 0.9% 1,000 ML IV SCH (11:47)
--- NOTE | 2018-01-16 19:38 | Discharge Plan ---
Discharge Plan Disposition: Home, Self Care Condition: Good Prescriptions: Levofloxacin [Levaquin] 500 mg PO DAILY #14 tablet Diet: Regular Activity Restrictions: Additional Comments (no lifting > 10 lbs for 6 weeks.) Shower Restrictions: No (but keep wounds clean and dry) Driving Restrictions: No Additional Instructions or Follow Up instructions: You were admitted because of abdominal pain. The abdominal pain ended up being a very infected gallbladder. You had also passed a stone in the common bile duct between your pancreas and liver and had given you mild pancreatitis. He responded very nicely to antibiotics. The surgeon was able to take you to the operating room and take out the gallbladder. However you did have bacteria in your blood from the infection. The recommendation is 2 weeks of IV antibiotic therapy or 2 weeks of a pill. If you take 2 weeks of the pill is not the standard therapy. It is not yet proven. But it is a feasible therapy. Given that option he really wanted to do the pill as opposed to 2 weeks of IV antibiotic therapy. As such we are sending you home on Levaquin once a day for [address] Myers has recommended that you do not do any heavy lifting for the next 6 weeks. No greater than 10 pounds. He like to see you in his office in the next week or so. If you have any recurrence of pain, fever, abdominal pain, please return to the emergency room. Keep the wound of your abdomen, incisions, clean and dry. You can take a shower but do not take a bath. No Smoking: If you smoke, Please STOP! Call for help. Follow-up with: Kamron Fabian DO [Primary Care Provider] -
[2018-01-16 19:41] VITALS: BP 165/82
[2018-01-16] MEDS: ACETAMINOPHEN 325 MG TABLET PO PRN (19:41)
--- NOTE | 2018-01-17 02:16 | DISCHARGE SUMMARY ---
Physician: Adele Richards MD DATE OF ADMISSION: 01/13/2018 DATE OF DISCHARGE: 01/16/2018 DISCHARGE DIAGNOSES 1. Acute cholecystitis. 2. Acute gallstone pancreatitis. 3. Escherichia coli bacteremia. 4. Hyponatremia. 5. Hypokalemia. 6. Hypertension. 7. Benign prostatic hypertrophy. DISCHARGE MEDICATIONS 1. Allopurinol 100 mg p.o. b.i.d. 2. Aspirin 81 mg p.o. daily. 3. Finasteride 5 mg p.o. daily. 4. Hydrochlorothiazide 50 mg p.o. daily. 5. Cozaar 100 mg p.o. daily. 6. Multivitamin 1 p.o. daily. 7. Flomax 0.4 mg a day. 8. Levaquin 500 mg p.o. daily #12. PRINCIPAL PROCEDURES 1. Angiography CT chest, abdomen and pelvis. No aortic dissection. No central pulmonary emboli. Moderate to severe atherosclerosis. Cholelithiasis. Enlarged prostate gland. No central pulmonary emboli. 2. Abdominal ultrasound. Echogenic material within the gallbladder showing sludge. No stones or wall thickening. No intrahepatic or extrahepatic ductal dilatation. 3. MRCP. Gallbladder moderately distended. Layering gravel-like gallstones. No gallbladder wall thickening. Moderate pericholecystic fluid. No intrahepatic or extrahepatic biliary ductal dilatat ion with a common bile duct measuring 7 mm. No evidence of choledocholithiasis. Lung bases clear. 4. Blood cultures growing Escherichia coli. 5. Laparoscopic cholecystectomy with umbilical herniorrhaphy. HOSPITAL COURSE: He is an 82-year-old gentleman with a past medical history significant for hyperten dyllan, benign prostatic hypertrophy, gout and osteoarthritis who presented to the emergency department with a chief complaint of abdominal pain. He regards himself as a healthy dai, slowing down because of age, deaf. He was in his normal state of health until 4:30 p.m. when he began having severe abdo stuart pain located in the epigastric region radiating straight through to his back. He broke out in a cold sweat and the pain was a 10/10, nausea, pain constant until he received pain medication in the emergency department. He remembers having pain in 1988 when he had a kidney stone, but the location of the pain was different. Last meal was at lunch time, pain, not related to that meal or recent p. o. intake. When the pain started, he was watching TV and talking to his son. He denied fever or chi lls. No vomiting or diarrhea. No chest pain. In the emergency room, he was afebrile, slightly hypertensive at 180/95 by the end of the visit. O2 saturations 95% on room air, pulse at around 83. He does use an occasional walker with shopping, but was an alert deaf, elderly gentleman with epigastric abdominal pain. He was evaluated by Dr. Cerda. He made sure that he did not have a dissecting aneurysm and CT angio grams were negative other than for dense atherosclerosis. His white cell count was normal, hemoglobi n of 14.8. Total bilirubin was 1.4, AST 88, ALT 37. Lipase is elevated at 1595. After making sure he did not have an aneurysm, the diagnosis was that of pancreatitis. He is not an alcoholic. No alcohol abuse history and we focused on gallstone pancreatitis. As such, we went to [facility]. Total bilirubin climbed to 1.3 and AST climbed to 253 and ALT climbed to 169. Lipase the next day was 178. He then spiked a temperature and received IV antibiotic therapy. He was seen by general surgery. MRCP was done to confirm there was no common bile duct stones and he was taken to [facility] operating room. An intraoperative cholangiogram was attempted, but not successful. He did have s uccessful removal of an early gangrenous gallbladder and repair of an umbilical hernia that was found . In the postoperative setting, the patient did very well. He had some mild hypokalemia and mild hypon atremia. On the day of discharge, he was eating a full diet, ambulating in the hallway. His total b ilirubin had now become normal at 1. AST had dropped to 51, ALT dropped to 66, alkaline phosphatase was 77 and lipase was now 17 with amylase 28. Unfortunately, his blood cultures did grow out Escherichia coli. I did speak to [facility] infectious disease consultation service. The traditional standard treatment for bacteremia is t wo weeks of IV antibiotic therapy. The attending said that this was an interesting case and it has b ecome controversial and quite a lively topic in the academic circles between surgery and ID. General surgery feels that the patient, since the source of infection is gone, does not necessarily need two weeks of IV antibiotic therapy and could probably even get away with p.o. therapy. Owen bobo se states that while this is a new topic, and a new treatment, it is still not the standard. She gav e me options of giving this patient IV antibiotic therapy and, if we felt strongly that he was clinic ally stable, possible p.o. When presented with these options, the patient was very firm in stating he did not want IV antibiotic therapy. "I'm old, I just want to get outta here, and I'd rather take my chances." Son was in the room when I went over these options with him and it was okay with dad doing this. He was instructed to keep his wounds clean and dry, not to lift anything greater than 10 pounds for t he next six weeks, asked to see Dr. Myers in followup in the next week. He is at home on Levaquin 500 p.o. daily for the next 12 days. PHYSICAL EXAMINATION VITAL SIGNS: Temperature was 36.8, pulse 72, blood pressure 165/82, respirations 16, 98% on room air . GENERAL: He is a medium statured elderly man, moderately overweight at 90.5 kilograms. Deaf, quiet demeanor, but alert, oriented to person, place and time and ambulating in his room with some shufflin g gait and some wincing with abdominal pain. LUNGS: Chest wall was with increased AP diameter, diminished breath sounds at the bases but without crackles, rhonchi or wheezing. No increased respiratory effort. PMI was normally placed with a regu lar rate and rhythm. ABDOMEN: Slightly distended from the air from surgery, but he said he was having plenty of gas and h ad a bowel movement. Tender only at the incision sites. No rebound or guarding. He says he has not needed any pain medicine at all today. EXTREMITIES: Extremities are warm. Very thin ankles without clubbing, cyanosis or edema. Greater than 30 minutes was spent in coordinating discharge. The patient is asked to see Dr. Kamron edgar in followup in the next 2-3 weeks for continuity of care. TD: 01/16/2018 21:08
== END 2018-01-16 20:16 | disposition home or self-care (01) | DRG 417 ==
LOC: EDUNIT# → ED 17:43 → MS3 21:04
PROVIDERS: ADMIT Internal Medicine; ATTEND Specialist
PROC: 0WQF4ZZ Repair Abdominal Wall, Percutaneous Endoscopic Approach (ICD-10-PCS; 2018-01-15)
PROC: 0FT44ZZ Resection of Gallbladder, Percutaneous Endoscopic Approach (ICD-10-PCS; principal; 2018-01-15 16:00)
DX: K85.90 Acute pancreatitis without necrosis or infection, unspecified (principal); K80.20 Calculus of gallbladder without cholecystitis without obstruction; K80.00 Calculus of gallbladder with acute cholecystitis without obstruction; K85.10 Biliary acute pancreatitis without necrosis or infection; R78.81 Bacteremia; E87.1 Hypo-osmolality and hyponatremia; I97.791 Other intraoperative cardiac functional disturbances during other surgery; R00.1 Bradycardia, unspecified; Y83.6 Removal of other organ (partial) (total) as the cause of abnormal reaction of the patient, or of later complication, without mention of misadventure at the time of the procedure; Y92.234 Operating room of hospital as the place of occurrence of the external cause; E87.6 Hypokalemia; E86.1 Hypovolemia; N40.0 Benign prostatic hyperplasia without lower urinary tract symptoms; I10 Essential (primary) hypertension; K42.9 Umbilical hernia without obstruction or gangrene; M10.9 Gout, unspecified; M19.90 Unspecified osteoarthritis, unspecified site; B96.20 Unspecified Escherichia coli [E. coli] as the cause of diseases classified elsewhere; H91.90 Unspecified hearing loss, unspecified ear; I70.0 Atherosclerosis of aorta; Z87.442 Personal history of urinary calculi; Z79.82 Long term (current) use of aspirin; Z72.89 Other problems related to lifestyle; Z87.891 Personal history of nicotine dependence; Z86.010 Personal history of colon polyps
CPT/HCPCS: 36415; 71275; 74174; 74181; 76705; 80053; 80061; 81001; 81003; 82150; 82330; 83605; 83690; 83721; 83735; 84100; 84484; 85025; 85610; 86850; 86900; 86901; 87040; 87086; 87181; 93005; 96374; 99284

== ENCOUNTER 2018-04-06 08:35 | Outpatient (CLI) | payer MEDICARE, BC ==
[2018-04-06 12:25] LABS: BASOPHILS % (AUTO) 0.7 %; EOSINOPHILS # (AUTO) 0.2 10^3/uL (0.0-0.7); EOSINOPHILS % (AUTO) 4.2 %; HGB - HEMOGLOBIN 14.7 g/dL (14.0-18.0); LYMPHOCYTES # (AUTO) 1.8 10^3/uL (1.5-3.5); LYMPHOCYTES % (AUTO) 30.4 %; MEAN CORPUSCULAR HEMOGLOBIN 30.7 pg (27.0-31.0); MEAN CORPUSCULAR HGB CONC 34.3 g/dL (32.0-36.0); MEAN CORPUSCULAR VOLUME 89.5 fL (80.0-94.0); MEAN PLATELET VOLUME 6.9 fL (7.4-11.4); MONOCYTES # (AUTO) 0.7 10^3/uL (0.0-1.0); MONOCYTES % (AUTO) 10.8 %; NEUTROPHILS # (AUTO) 3.2 10^3/uL (1.5-6.6); NEUTROPHILS % (AUTO) 53.9 %; PLT - PLATELET COUNT 350 10^3/uL (130-450); RED BLOOD COUNT 4.79 10^6/uL (4.70-6.10); RED CELL DISTRIBUTION WIDTH 15.4 % (12.0-15.0)
[2018-04-06 13:59] LABS: HEMOGLOBIN A1C 0.43 g/dL; HEMOGLOBIN A1C % 4.6 % (4.6-6.2)
[2018-04-06 14:08] LABS: ALBUMIN 3.7 g/dL (3.2-5.5); ALBUMIN/GLOBULIN RATIO 1.2 (1.0-2.2); ALKALINE PHOSPHATASE 88 IU/L (42-121); ALT ALANINE AMINOTRANSFERASE 13 IU/L (10-60); AST ASPARTATE AMINOTRANSFERASE 21 IU/L (10-42); BILIRUBIN,TOTAL 0.9 mg/dL (0.2-1.0); BUN - BLOOD UREA NITROGEN 11 mg/dL (6-20); CALCIUM 9.1 mg/dL (8.5-10.3); CARBON DIOXIDE - CO2 30 mmol/L (21-32); CHLORIDE 95 mmol/L (101-111); CHOL/HDL RATIO 2.3 (<5.0); CHOLESTEROL 150 mg/dL; CREATININE 0.7 mg/dL (0.6-1.2); GFR - MDRD 107 (>89); GLUCOSE 94 mg/dL (70-100); HDL CHOLESTEROL 65 mg/dL; LDL CHOLESTEROL,CALCULATED 67 mg/dL; SODIUM 133 mmol/L (135-145); TOTAL PROTEIN 6.9 g/dL (6.7-8.2); URIC ACID 4.8 mg/dL (2.6-7.2); VLDL CHOLESTEROL 18 mg/dL
== END 2018-04-06 23:59 | disposition home or self-care (01) ==
LOC: LAB.WCP 08:35
PROVIDERS: ATTEND Family Medicine
DX: I10 Essential (primary) hypertension (principal); R73.01 Impaired fasting glucose; E78.9 Disorder of lipoprotein metabolism, unspecified; M10.9 Gout, unspecified
CPT/HCPCS: 36415; 80053; 80061; 83036; 83721; 84550; 85025